=== PATIENT | male | born 1960 | race Caucasian/White ===

== ENCOUNTER 2017-05-14 22:31 | Observation (INO) | payer BC ==
[2017-05-14 23:03] LABS: #Basophils 0.2 thou/uL (0.0-0.2); #Eosinphils 0.2 thou/uL (0.0-0.7); #Lymphocytes 5.8 thou/uL (1.20-3.40); #Monocytes 0.8 thou/uL (0.11-0.59); #Neutrophils 7.1 thou/uL (1.40-6.50); %Basophils 1.3 % (0.0-1.0); %Eosinophils 1.1 % (0.0-10.0); %Lymphocytes 41.5 % (21.0-51.0); %Monocytes 5.5 % (0.0-10.0); %Neutrophils 50.6 % (42.0-75.0); Hemoglobin 15.7 g/dL (14.0-18.0); Mean Corpuscular HGB CONC 33.6 g/dL (32.0-36.0); Mean Corpuscular Hemoglobin 34.1 pg (27.0-31.0); Mean Platelet Volume 7.2 fL (7.4-10.4); Platelet Count 302 thou/uL (130-400); RBC Distribution Width 12.1 % (11.5-14.5)
--- NOTE | 2017-05-14 23:16 | RAD ---
PORTABLE CHEST: 05/14/17 HISTORY: Syncope. Lungs appear clear. Heart and mediastinum unremarkable. A single AICD lead is noted. A nodular density overlying the left lower lung was noted on a prior portable film of 11/06/16 and is u nchanged. This may represent a nipple shadow. IMPRESSION: No acute process. POS: [facility]
[2017-05-14 23:22] LABS: Lipase 39 U/L (8-78)
[2017-05-14 23:23] LABS: CK (CPK) 92 U/L (30-200)
[2017-05-14 23:27] LABS: CKMB 1.2 ng/mL (0-6.6); Troponin I 0.016 ng/mL (< 0.028)
[2017-05-15 00:55] LABS: Anion Gap 16 mmol/L (10-20); BUN (Urea Nitrogen) 13 mg/dL (8.4-25.7); Calc. Creatinine Clearance 0 mL/min (70-130); Calcium 9.3 mg/dL (7.8-10.44); Carbon Dioxide 23 mmol/L (22-29); Chloride 105 mmol/L (98-107); Estimated GFR-MDRD 81; Glucose 113 mg/dL (70-105); Magnesium 2.5 mg/dL (1.6-2.6); Phosphorus 3.9 mg/dL (2.3-4.7); Potassium 3.9 mmol/L (3.5-5.1); Sodium 140 mmol/L (136-145)
[2017-05-15 02:31] LABS: Troponin I 0.021 ng/mL (< 0.028)
[2017-05-15] MEDS ORDERED: Ondansetron ODT 4 MG TAB PO PRN (02:40)
[2017-05-15] MEDS ORDERED: Acetaminophen 325 MG TAB PO PRN (02:40)
[2017-05-15] MEDS ORDERED: Ondansetron HCl/PF 4 MG/2 ML Vial IVP PRN (02:40)
[2017-05-15] MEDS ORDERED: Senokot 8.6 MG TAB PO PRN (02:40)
[2017-05-15] MEDS ORDERED: Nitroglycerin 0.4 MG TAB (25 Tab Bottle) PO PRN (02:40)
[2017-05-15] MEDS ORDERED: Nitroglycerin 0.4 MG TAB (25 Tab Bottle) SL PRN (02:43)
--- NOTE | 2017-05-15 02:51 | HP ---
DATE OF ADMISSION: 05/15/2017 CHIEF COMPLAINT: Syncope. HISTORY OF PRESENT ILLNESS: The patient is a 56-year-old male with coronary artery disease, status p ost UT with stent placement, chronic systolic heart failure, status post AICD, presented to the [facility] ency room with an episode of syncope that happened around 9:30 p.m. The patient was in the bathroom at that time. He lost consciousness approximately for a minute or so. Prior to syncope, the patient felt dizzy and the room was spinning. He denies significant injuries. In no chest pain, shortness of breath, palpitations or residual confusion reported. Over the last two days, the patient has been feeling lightheaded on and off. He has been under lot of stress lately. He denies any focal neurol ogic deficit. The patient also had some chest discomfort after the above syncopal episode. He took 1 sublingual nitroglycerin with some improvement. The chest discomfort was substernal without any ra diation, moderate in intensity. PAST MEDICAL HISTORY: 1. Chronic systolic heart failure, ejection fraction 30% to 35% range. 2. Coronary artery disease, status post UT with stent placement. He was admitted at this facility i november of last year for inferior ST elevation myocardial infarction. 3. Ischemic cardiomyopathy. 4. History of AICD. 5. Hyperlipidemia. 6. Ongoing tobacco abuse. PAST SURGICAL HISTORY: 1. AICD placement. 2. Coronary stent placement. 3. Hernia repair. ALLERGIES: The patient denies any drug allergies. CURRENT HOME MEDICATIONS: Aspirin 81 mg daily, Plavix 75 mg daily, carvedilol 3.125 mg b.i.d., Lipit or 80 mg daily, Entresto 49/51 one tablet b.i.d., digoxin 125 mcg daily. SOCIAL HISTORY: The patient currently lives at home with his family. He denies any alcohol or drug use. Continues to smoke up to 1 pack a day. FAMILY HISTORY: Negative for premature coronary artery disease. REVIEW OF SYSTEMS: The following complete review of systems was negative, unless otherwise mentioned in the HPI or below: Constitutional: Weight loss or gain, ability to conduct usual activities. Skin: Rash, itching. Eyes: Double vision, pain. ENT/Mouth: Nose bleeding, neck stiffness, pain, tenderness. Cardiovascular: Palpitations, dyspnea on exertion, orthopnea. Respiratory: Shortness of breath, wheezing, cough, hemoptysis, fever or night sweats. Gastrointestinal: Poor appetite, abdominal pain, heartburn, nausea, vomiting, constipation, or diarr hea. Genitourinary: Urgency, frequency, dysuria, nocturia. Musculoskeletal: Pain, swelling. Neurologic/Psychiatric: Anxiety, depression. Allergy/Immunologic: Skin rash, bleeding tendency. PHYSICAL EXAMINATION: VITAL SIGNS: In the emergency room, temperature 98.4, respiration of 18, pulse rate of 85, blood pre ssure of 148/87, O2 saturation 98% on room air. GENERAL: A 56-year-old male in no apparent distress. HEENT: Head atraumatic, normocephalic. Sclerae anicteric. Moist mucous membranes. No oral lesion. NECK: Supple, no JVD, no carotid bruit. LUNGS: Clear to auscultation bilaterally. No wheezing or rales. HEART: S1, S2 present. Regular rate and rhythm. No murmur, rubs, or gallops appreciated. ABDOMEN: Soft, nontender, bowel sounds present. EXTREMITIES: No edema or calf tenderness. NEUROLOGIC: Grossly nonfocal, moves all four extremities. PSYCHIATRY: Alert, awake, oriented x3. SKIN: Warm and dry. LYMPH NODES: No palpable lymph nodes in the neck. PERIPHERAL VASCULAR: Radial pulses palpable bilaterally. MUSCULOSKELETAL: No joint swelling or tenderness. LABORATORY FINDINGS: Troponin negative. Electrolytes in normal range. CBC showed WBC 14 with hemog lobin 15.7, platelet 302. Creatinine 0.97. BNP 29.9. Chest x-ray by my review was negative for infiltrate. EKG by my review showed sinus rhythm with nons pecific ST-T wave changes. IMPRESSION: 1. Syncope, suspected cardiac. 2. Coronary artery disease, status post myocardial infarction with stent placement. 3. Ischemic cardiomyopathy/chronic systolic heart failure, ejection fraction 30% to 35% range. 4. Hyperlipidemia. 5. Ongoing tobacco abuse. 6. Chronic kidney disease stage 2. 7. Chronic leukocytosis. 8. Microcytosis. 9. Hypertension. PLAN: The patient will be monitored in the telemetry unit as observation. Cardiology will be consul dima. His AICD will be interrogated. We will check orthostatic vitals. We will continue all of his home medications. Check digoxin level. Tobacco cessation was emphasized. Plan of care was discussed with the patient in detail, he stated understanding.
[2017-05-15 05:39] LABS: Digoxin Less than 0.15 ng/mL (0.8-2.0)
[2017-05-15] MEDS ORDERED: Clopidogrel Bisulfate 75 MG TAB PO SCH (09:00)
[2017-05-15] MEDS ORDERED: Carvedilol 3.125 MG TAB PO SCH (09:00)
[2017-05-15] MEDS ORDERED: Famotidine 20 MG TAB PO SCH (09:00)
[2017-05-15] MEDS ORDERED: Sacubitril 49 MG/Valsartan 51 MG TABLET PO SCH (09:00)
[2017-05-15] MEDS ORDERED: Digoxin 0.125 MG TAB PO SCH (09:00)
[2017-05-15] MEDS ORDERED: Aspirin 81 mg Enteric Coated Tablet PO SCH (09:00)
[2017-05-15] MEDS ORDERED: Docusate 100 MG CAP PO SCH (09:00)
[2017-05-15] MEDS ORDERED: Sacubitril 24.5 MG/Valsartan 25.5 MG TABLET PO SCH ×2 (15:30→21:00)
[2017-05-15 17:18] VITALS: BP 125/66; TEMP 98.2
[2017-05-15] MEDS ORDERED: Atorvastatin Calcium 40 MG TAB PO SCH (21:00)
--- NOTE | 2017-05-15 22:22 | DIS ---
PRIMARY CARE PHYSICIAN: Delilah Hess DO DATE OF ADMISSION: 05/15/2017 DATE OF DISCHARGE: 05/15/2017 DISCHARGE DIAGNOSIS: Syncope. CONDITION OF PATIENT ON THE DAY OF DISCHARGE: Stable. I assessed Mr. Avila on the day of discharg e. He denies any chest pain or shortness of breath. PHYSICAL EXAMINATION: VITAL SIGNS: Stable. HEART: S1 and S2 are heard, regular. LUNGS: Clear to auscultation bilaterally. HOSPITAL COURSE: Mr. Margarita Smith was admitted to [facility] on 05/15/2017 fol lowing a syncopal episode. His AICD was interrogated. There were no significant dysrhythmias. He w as seen by Cardiology Service. Dr. Pierre decreased his Entresto dose to 24/25.5 mg 2 times a day. He is being discharged home in a stable condition. Many thanks for allowing me to participate in your patient's care. Please feel free to contact me if any questions or concerns. DISCHARGE DESTINATION: Home.
--- NOTE | 2017-05-15 23:43 | CON ---
CARDIOLOGY CONSULTATION DATE OF CONSULTATION: 05/15/2017 REASON FOR CONSULTATION: Syncope. PRIMARY DATA COMMUNICATIONS ANALYST: Ryland Pierre MD HISTORY OF PRESENT ILLNESS: Mr. Avila is a pleasant 56-year-old white gentleman who comes to the ospital for syncope. He was at home, went to the bathroom to have a bowel movement, he sat down, had not even started to strain and he just collapsed to the floor, he was out for about a minute. He th en woke up, he was completely lucid, he opened the door, his heard the thud so she was waiting o n the door as it was locked. He woke up and he was brought into the hospital. He felt just fine. H is blood pressure was checked and it was in 130s when he was finally awake. He came in, he has an AI CD in place for a history of ischemic cardiomyopathy, his EF is about 30-35%. He had recently the in [place] which required stent placement in RCA and he has had an anterior NH in the past. He denies any chest pain, tightness, pressure, no shortness of breath. This is the first time he has ever passed out. PAST MEDICAL HISTORY: 1. Chronic systolic heart failure, EF of about 30-35%. 2. Coronary artery disease as above. 3. Ischemic cardiomyopathy. 4. AICD placement. 5. Hyperlipidemia. 6. Tobacco abuse. PAST SURGICAL HISTORY: 1. AICD placement in the past. 2. Coronary artery stenting in the past. 3. Hernia repair. OUTPATIENT MEDICATIONS: Include: 1. Aspirin 81 a day. 2. Plavix 75 mg a day. 3. Carvedilol 3.125 mg b.i.d. 4. Lipitor 80 mg a day. 5. Entresto 49/51 twice a day. 6. Digoxin 125 mcg a day. SOCIAL HISTORY: Lives at home with his family. No alcohol or drug use, continues to smoke about a p ack a day. FAMILY HISTORY: Noncontributory. REVIEW OF SYSTEMS: A 12-point review of systems was done and is all negative unless stated in the hi story of present illness. PHYSICAL EXAMINATION: VITAL SIGNS: Temperature 98.4, pulse 77, respiration rate 15, satting 92% on room air, blood pressur e 115/70, he is not . His blood pressure lying supine is 134/81, standing is 134/81, and sittin g is 125/73. GENERAL: Awake, alert, oriented x3, in no distress. HEENT: Normocephalic, atraumatic. NECK: Supple. No JVD. LUNGS: Clear. CARDIOVASCULAR: S1, S2. No S3 or S4. No murmurs or rubs. ABDOMEN: Soft, positive bowel sounds. EXTREMITIES: No edema. SKIN: Warm and dry. LABORATORY WORK: Reviewed. White count 14, hemoglobin 15, hematocrit 46, platelet count of 302. Ch emistry was unremarkable. Troponin is negative x3. BNP was 29. Lipase was 39. Digoxin level was a ctually undetectable. DIAGNOSTIC DATA: Chest x-ray was unremarkable. EKG was unremarkable. AICD interrogation showed no evidence of arrhythmia during the episode that he did have 2 episodes of SVT, which were asymptomatic , back in 12/2016. ASSESSMENT AND PLAN: 1. Syncope: Most likely related to hypotension. He has always had borderline low blood pressure an d probably the increased dose of Entresto that he has been on for the last few months, is too much fo r him at this time. We will plan on cutting this in half to 24/26 dose twice a day. 2. Ischemic cardiomyopathy: EF of 30-35%, automatic implanted cardioverter defibrillator in place. Continue beta maik and Entresto for now. Thank you for letting us to participate in the care of your patient. We will sign off. He can follo w up with me in 2 weeks.
== END 2017-05-15 18:18 | disposition home or self-care (01) ==
LOC: ERS 22:31 → 2SW 05-15 01:32
PROVIDERS: ADMIT Internal Medicine; ATTEND Internal Medicine
DX: R55 Syncope and collapse (principal); I25.10 Atherosclerotic heart disease of native coronary artery without angina pectoris; I25.2 Old myocardial infarction; I25.5 Ischemic cardiomyopathy; I13.0 Hypertensive heart and chronic kidney disease with heart failure and stage 1 through stage 4 chronic kidney disease, or unspecified chronic kidney disease; I50.22 Chronic systolic (congestive) heart failure; N18.2 Chronic kidney disease, stage 2 (mild); E78.5 Hyperlipidemia, unspecified; D72.829 Elevated white blood cell count, unspecified; R71.8 Other abnormality of red blood cells; F17.200 Nicotine dependence, unspecified, uncomplicated; Z79.82 Long term (current) use of aspirin; Z79.899 Other long term (current) drug therapy; Z95.5 Presence of coronary angioplasty implant and graft; Z95.810 Presence of automatic (implantable) cardiac defibrillator
CPT/HCPCS: 36415; 71045; 80048; 80162; 82550; 82553; 83690; 83735; 83880; 84100; 84484; 85025; 93005; 94760; 99406; G0378

== ENCOUNTER 2017-11-20 14:22 | Inpatient (IN) | payer BC ==
[2017-11-20] MEDS ORDERED: Sodium Chloride 0.9% 1,000 ML IV SCH (16:39)
[2017-11-20] MEDS ORDERED: Ondansetron ODT 4 MG TAB SL PRN (16:39)
[2017-11-20] MEDS ORDERED: Ondansetron HCl/PF 4 MG/2 ML Vial IVP PRN ×2 (16:39→20:44)
[2017-11-20 16:59] VITALS: BMI 19.4
[2017-11-20] MEDS ORDERED: Acetaminophen 325 MG TAB PO PRN (18:02)
[2017-11-20] MEDS ORDERED: hydrALAZINE 20 MG/ML VIAL SLOW IVP PRN (20:44)
[2017-11-20] MEDS ORDERED: Acetaminophen 500 MG TAB PO PRN (20:44)
[2017-11-20] MEDS ORDERED: cloNIDine 0.1 MG TAB PO PRN (20:44)
[2017-11-20] MEDS ORDERED: Ondansetron ODT 4 MG TAB PO PRN (20:44)
[2017-11-20] MEDS ORDERED: Vancomycin HCl 1 GM in Sodium Chloride 0.9% 250 ML 250 ML IVPB SCH (21:00)
--- NOTE | 2017-11-20 21:20 | HP ---
DATE OF ADMISSION: 11/20/2017 PRIMARY CARE PHYSICIAN: Dr. Delilah Hess. CHIEF COMPLAINT: Left jaw pain, abdominal pain. HISTORY OF PRESENT ILLNESS: This is a 56-year-old male who presents to [facility] Emergency Department complaining of increasing left jaw and mouth pain as well as severe abdominal p ain which began in the last 24 hours. The patient states he went to his local dentist in the [facility] area for swelling and tooth pain in the left side of his jaw. The patient was evaluated and pl aced on clindamycin which patient states he took approximately 3 doses of the medication. The patien t complained of increasing abdominal pain and discomfort after taking the medication that became gamaliel re. Patient denied any specific diarrhea, but had some nausea. The patient has noticed increasing s welling to left lower jaw as well as the gumline in the associated area of his teeth. The patient ad mits to feeling sweaty and warm, but did not take his temperature. The patient denies any prior surg ical intervention or dental procedures recently. The patient admits to poor dentition and has severa l teeth that need to be removed. The patient admits to decreased oral intake due to the pain with ch bhandari small amounts of food. In the emergency room, patient underwent general evaluation including C T imaging of the neck showing evidence of questionable abscess in the submandibular region as well as inflammatory process in the left side of the oral cavity and gingival region in the lower mandible. The patient also noted with questionable right-sided nasopharyngeal mass versus cyst. The patient r eceived IV Unasyn and acetaminophen and transferred to the medical floor. PAST MEDICAL HISTORY: 1. Tobacco abuse. 2. Ischemic cardiomyopathy with ejection fraction of 30%-35%. 3. Hyperlipidemia. 4. Coronary artery disease status post myocardial infarction with stent placement. 5. Chronic systolic heart failure with ejection fraction of 30%-35%. PAST SURGICAL HISTORY: 1. Status post AICD placement in 2009. 2. Status post cardiac stent placement. 3. Status post hernia repair. CURRENT MEDICATIONS: 1. Lipitor 80 mg p.o. daily. 2. Coreg 3.125 mg p.o. b.i.d. 3. Plavix 75 mg p.o. daily. 4. Digoxin 125 mcg p.o. daily. 5. Nitroglycerin 0.4 mg sublingually every 5 minutes p.r.n. chest pain. 6. Enteric-coated aspirin 81 mg p.o. daily. 7. Entresto 24.5/25.5 mg 1 tab p.o. b.i.d. ALLERGIES: No known drug allergies. FAMILY HISTORY: No inheritable diseases per patient report. SOCIAL HISTORY: Patient is , accompanied by multiple family members in the hospital. Smokes up to a pack of cigarettes daily. No alcohol or illicit drug use. Resides in [place], [place]. REVIEW OF SYSTEMS: The following complete review of systems was negative, unless otherwise mentioned in the HPI or below: Constitutional: Weight loss or gain, ability to conduct usual activities. Skin: Rash, itching. Eyes: Double vision, pain. ENT/Mouth: Nose bleeding, neck stiffness, pain, tenderness. Cardiovascular: Palpitations, dyspnea on exertion, orthopnea. Respiratory: Shortness of breath, wheezing, cough, hemoptysis, fever or night sweats. Gastrointestinal: Poor appetite, abdominal pain, heartburn, nausea, vomiting, constipation, or diarr hea. Genitourinary: Urgency, frequency, dysuria, nocturia. Musculoskeletal: Pain, swelling. Neurologic/Psychiatric: Anxiety, depression. Allergy/Immunologic: Skin rash, bleeding tendency. Otherwise negative except as stated per HPI. PHYSICAL EXAMINATION: VITAL SIGNS: On admission, blood pressure 117/75, pulse 78, respiratory rate 12, temperature 97.5 de grees Fahrenheit, O2 saturation 95% on room air. GENERAL APPEARANCE: This is a 56-year-old male, alert and oriented x3, pleasant, conversan t, in no acute distress. HEENT: Pupils are equal, round, and reactive to light and accommodation. Extraocular muscles are in tact. No scleral icterus, no conjunctival injection. Nares patent. OP; positive subglossal edema w ith gingival edema of the left posterior mandibular region with associated poor dentition, dental car ies and periodontal disease. Positive tenderness to palpation with lymphadenopathy and enlarged subm andibular salivary gland. Positive tenderness to palpation. Positive adenopathy of the left cervica l region. No thyromegaly. Full active and passive range of motion of cervical spine. CHEST: Diminished airflow in the bases bilaterally. CARDIOVASCULAR: S1, S2, without noted murmur, rub or gallop. Left upper chest wall with AICD device in place. ABDOMEN: Flat, soft, nontender and nondistended. Bowel sounds are positive in all four quadrants. There is no hepatosplenomegaly, no abdominal bruits, no rebound or guarding appreciated. EXTREMITIES: Warm and dry with fair turgor. No clubbing, cyanosis or asymmetric edema appreciated. Pulses palpable distally at the dorsalis pedis, posterior tibial, and popliteal arteries bilaterally . Capillary refill is less than 2 seconds. NEUROLOGIC: Cranial nerves II-XII are grossly intact. No focal or lateralizing signs. PERTINENT LABORATORY DATA AND IMAGING DATA: Complete metabolic profile within normal limits. CBC sh owed white blood cell count 18.4, hemoglobin 16, hematocrit 46, and platelet count 341 with normal di fferential. Urinalysis negative. CT of the soft tissues of the neck dated 11/20/2017 showed multipl e abnormalities including infectious/inflammatory process at left side of oral cavity. Questionable abscess in the submandibular region. 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 EKG dated 11/04 by my interpretation shows sinus mechanism with heart rates in the 70s. Attenuated R waves no dima in the precordial leads. Normal axis. No acute ST-T wave changes appreciated. ASSESSMENT AND PLAN: 1. Periodontal/submandibular abscess. The patient will be admitted to the medical floor. We will c ontinue IV Zosyn 3.375 grams IV q.6 hours. Continue [place] 5/325 mg 1-2 tabs p.o. q.6 hours p.r.n. pa in. Peridex oral rinse 15 mL swish and spit b.i.d. We will consult Oral Maxillofacial Surgery Servi ce in the a.m. for evaluation and potential surgical intervention. 2. Coronary artery disease. Chronic and stable. Continue home regimen to include aspirin and Plavi x. 3. Ischemic cardiomyopathy with ejection fraction of 30%-35%. Stable currently. No evidence of dec ompensation. Continue Entresto 1 tab b.i.d. 4. Hypertension. Resume Coreg 3.125 mg b.i.d. 5. Tobacco abuse. We will offer smoking cessation resources prior to discharge. Nicotine patch 21 mg transdermally q.24 hours. 6. Prophylaxis. Sequential compression devices while in bed. Pepcid 20 mg p.o. b.i.d. 7. Code status is FULL. Surrogate medical decision maker is patient's spouse.
[2017-11-20] MEDS: Nicotine 21 MG PATCH TD SCH (21:31)
[2017-11-20] MEDS: Chlorhexidine Gluconate 15 ML UDCUP SSP SCH (21:31)
[2017-11-20] MEDS: HYDROcodone/Acetaminophen 5/325 mg Tablet PO PRN (21:32)
[2017-11-20] MEDS: Sacubitril 24.5 MG/Valsartan 25.5 MG TABLET PO SCH (21:32)
[2017-11-20] MEDS: Vancomycin HCl 1 GM in Premix Bag 1 BAG IVPB SCH (21:33)
[2017-11-20] MEDS: Famotidine 20 MG TAB PO SCH (21:33)
[2017-11-20] MEDS: Sodium Chloride 0.9% 1,000 ML IV SCH (21:33)
[2017-11-20] MEDS: Carvedilol 3.125 MG TAB PO SCH (21:33)
[2017-11-20] MEDS: Piperacillin/Tazobactam 3.375 GM in Sodium Chloride 0.9% 100 ML IVPB SCH (22:47)
[2017-11-21] MEDS: HYDROcodone/Acetaminophen 5/325 mg Tablet PO PRN ×4 (02:03→20:10)
[2017-11-21] MEDS: Piperacillin/Tazobactam 3.375 GM in Sodium Chloride 0.9% 100 ML IVPB SCH ×4 (04:14→21:57)
[2017-11-21 04:59] LABS: Band 2 % (5-11); Eosinophils 1 % (0-10); Hemoglobin 13.8 g/dL (14.0-18.0); Lymphocytes 23 % (21-51); MDiff Complete? YES; Mean Corpuscular HGB CONC 33.7 g/dL (32.0-36.0); Mean Corpuscular Hemoglobin 33.9 pg (27.0-31.0); Mean Platelet Volume 6.8 fL (7.4-10.4); Monocytes 3 % (0-10); Neutrophil 69 % (42-75); Platelet Count 283 thou/uL (130-400); RBC Distribution Width 11.9 % (11.5-14.5); Reactive Lymphocytes 2 % (0-10); Red Blood Cell (RBC) Count 4.07 mill/uL (4.70-6.10); White Blood Cell (WBC) Count 15.2 thou/uL (4.8-10.8)
[2017-11-21 05:10] LABS: ALT (SGPT) 17 U/L (8-55); AST (SGOT) 16 U/L (5-34); Albumin 3.5 g/dL (3.5-5.0); Alkaline Phosphatase 103 U/L (40-150); Anion Gap 13 mmol/L (10-20); BUN (Urea Nitrogen) 15 mg/dL (8.4-25.7); Bilirubin, Total 0.2 mg/dL (0.2-1.2); Calc. Creatinine Clearance 78 mL/min (70-130); Calcium 8.5 mg/dL (7.8-10.44); Carbon Dioxide 21 mmol/L (22-29); Chloride 108 mmol/L (98-107); Estimated GFR-MDRD Greater than 90; Globulin 2.6 g/dL (2.4-3.5); Glucose 98 mg/dL (70-105); Potassium 3.8 mmol/L (3.5-5.1); Protein, Total 6.1 g/dL (6.0-8.3); Sodium 138 mmol/L (136-145)
[2017-11-21] MEDS: Sodium Chloride 0.9% 1,000 ML IV SCH ×2 (05:50→17:07)
[2017-11-21] MEDS: Atorvastatin Calcium 40 MG TAB PO SCH (07:47)
[2017-11-21] MEDS: Sacubitril 24.5 MG/Valsartan 25.5 MG TABLET PO SCH ×2 (07:47→20:09)
[2017-11-21] MEDS: Aspirin 81 mg Enteric Coated Tablet PO SCH (07:48)
[2017-11-21] MEDS: Clopidogrel Bisulfate 75 MG TAB PO SCH (07:48)
[2017-11-21] MEDS: Chlorhexidine Gluconate 15 ML UDCUP SSP SCH ×2 (07:48→20:09)
[2017-11-21] MEDS: Carvedilol 3.125 MG TAB PO SCH ×2 (07:48→20:09)
[2017-11-21] MEDS: Digoxin 0.125 MG TAB PO SCH (07:48)
[2017-11-21] MEDS: Famotidine 20 MG TAB PO SCH ×2 (07:48→20:09)
[2017-11-21] MEDS: Vancomycin HCl 1 GM in Premix Bag 1 BAG IVPB SCH ×2 (07:51→20:10)
[2017-11-21] MEDS ORDERED: Eucerin (Mineral Oil/Petrolatum,White) 30 gm Jar TOP PRN (09:44)
[2017-11-21] MEDS ORDERED: Senokot 8.6 MG TAB PO PRN (09:44)
[2017-11-21] MEDS ORDERED: Zolpidem Tartrate 5 MG TAB PO PRN (09:44)
[2017-11-21] MEDS ORDERED: Loperamide HCl 2 MG CAP PO PRN (09:44)
[2017-11-21] MEDS ORDERED: Diabetic Tussin 200 MG/10 ML UDCUP PO PRN (09:44)
[2017-11-21] MEDS ORDERED: Sodium Chloride 0.65% Nasal 44 ML BOT EA NARE PRN (09:44)
[2017-11-21] MEDS ORDERED: Chloraseptic Spray 180 ml Bottle PO PRN (09:44)
[2017-11-21] MEDS ORDERED: Loratadine 10 MG TAB PO PRN (09:44)
[2017-11-21] MEDS ORDERED: Artificial Tears 18 DROP/0.9 ML EA EYE PRN (09:44)
[2017-11-21] MEDS ORDERED: Mag-Al 1200 mg/1200 mg/30 ML UDCUP PO PRN (09:44)
[2017-11-21] MEDS ORDERED: Milk Of Magnesia 30 ML UDCUP PO PRN (09:44)
[2017-11-21] MEDS ORDERED: Nitroglycerin 0.4 MG TAB (25 Tab Bottle) ONE (09:59)
[2017-11-21] MEDS ORDERED: Nitroglycerin 2% Ointment 1 INCH/1 GM Packet ONE (10:01)
[2017-11-21] MEDS ORDERED: Fentanyl 250 MCG/5 ML VIAL ONE (10:20)
[2017-11-21] MEDS ORDERED: Ondansetron HCl/PF 4 MG/2 ML Vial IVP PRN (10:24)
--- NOTE | 2017-11-21 10:39 | PDOC.PN ---
- Subjective Encounter Start Date: 11/21/17 Encounter Start Time: 08:40 -: old records requested/rev Patient seen and examined. No new complaints. No overnight events - Objective Resuscitation Status: Resuscitation Status FULL:Full Resuscitation MAR Reviewed: Yes Vital Signs & Weight: Vital Signs (12 hours) Temp Pulse Resp BP Pulse Ox 11/21/17 08:20 97.7 F 74 18 137/79 92 L 11/21/17 08:00 97.7 F 74 18 97 11/21/17 07:48 79 11/21/17 04:00 97.9 F 79 18 137/84 95 11/21/17 00:00 98.1 F 87 18 100/64 93 L Weight Weight 117 lb I&O: 11/20/17 11/21/17 11/22/17 06:59 06:59 06:59 Intake Total 1931 Balance 1931 Result Diagrams: 11/21/17 04:19 11/21/17 04:19 Radiology Reviewed by me: Yes Phys Exam - Physical Examination Constitutional: NAD HEENT: PERRLA, moist MMs, sclera anicteric Neck: no JVD, supple submandibular swelling Respiratory: no wheezing, no rales, no rhonchi Cardiovascular: RRR, no significant murmur, no rub Gastrointestinal: soft, non-tender, no distention, positive bowel sounds Musculoskeletal: no edema, pulses present Neurological: non-focal, normal sensation, moves all 4 limbs Psychiatric: normal affect, A&O x 3 Skin: no rash, normal turgor Dx/Plan (1) Submandibular abscess Code(s): K12.2 - CELLULITIS AND ABSCESS OF MOUTH Status: Acute (2) CAD (coronary artery disease) Code(s): I25.10 - ATHSCL HEART DISEASE OF [place] CORONARY ARTERY W/O ANG PCTRS Status: Chronic (3) Chronic systolic heart failure, ACC/AHA stage C Code(s): I50.22 - CHRONIC SYSTOLIC (CONGESTIVE) HEART FAILURE Status: Chronic (4) Dyslipidemia Code(s): E78.5 - HYPERLIPIDEMIA, UNSPECIFIED Status: Chronic (5) Hypertension Code(s): I10 - ESSENTIAL (PRIMARY) HYPERTENSION Status: Chronic (6) Macrocytic anemia Code(s): D53.9 - NUTRITIONAL ANEMIA, UNSPECIFIED Status: Chronic (7) Tobacco abuse Code(s): Z72.0 - TOBACCO USE Status: Chronic - Plan cont current plan of care, continue antibiotics * today I & D [place] oral surgeon * continue IV antibiotics as below * pain controlled * repeat labs tomorrow. Review of Systems - Review of Systems ENT: Mouth Pain. negative: Ear Pain, Ear Discharge, Nose Pain, Nose Discharge, Nose Congestion, Mouth Swelling, Throat Pain, Throat Swelling, Other Respiratory: negative: Cough, Dry, Shortness of Breath, Hemoptysis, SOB with Excertion, Pleuritic Pain, Sputum, Wheezing Cardiovascular: negative: chest pain, palpitations, orthopnea, paroxysmal nocturnal dyspnea, edema, light headedness, other Gastrointestinal: negative: Nausea, Vomiting, Abdominal Pain, Diarrhea, Constipation, Melena, Hematochezia, Other Genitourinary: negative: Dysuria, Frequency, Incontinence, Hematuria, Retention , Other Musculoskeletal: negative: Neck Pain, Shoulder Pain, Arm Pain, Back Pain, Hand Pain, Leg Pain, Foot Pain, Other Skin: negative: Rash, Lesions, Felix, Bruising, Other - Medications/Allergies Allergies/Adverse Reactions: Allergies Allergy/AdvReac Type Severity Reaction Status Date / Time No Known Drug Allergies Allergy Verified 11/20/17 16:48 Medications: Current Medications Acetaminophen (Tylenol) 1,000 mg PO Q6H PRN PRN Reason: Headache/Fever or Mild Pain Hydrocodone Bitart/Acetaminophen ([place] 5/325) 2 tab PO Q4H PRN PRN Reason: Severe Pain (7-10) Last Admin: 11/21/17 05:50 Dose: 2 tab Hydrocodone Bitart/Acetaminophen ([place] 5/325) 1 tab PO Q4H PRN PRN Reason: Moderate Pain (4-6) Al Hydroxide/Mg Hydroxide (Maalox) 15 ml PO Q4H PRN PRN Reason: Heartburn or Indigestion Artificial Tears (Tears Naturale) 0 drop EA EYE PRN PRN PRN Reason: Dry Eyes Aspirin (Ecotrin) 81 mg PO DAILY [facility] Last Admin: 11/21/17 07:48 Dose: 81 mg Atorvastatin Calcium (Lipitor) 80 mg PO DAILY [facility] Last Admin: 11/21/17 07:47 Dose: 80 mg Carvedilol (Coreg) 3.125 mg PO BID [facility] Last Admin: 11/21/17 07:48 Dose: 3.125 mg Chlorhexidine Gluconate (Chlorhexidine Gluconate) 15 ml SSP BID [facility] Last Admin: 11/21/17 07:48 Dose: 15 ml Clonidine (Catapres) 0.1 mg PO Q4H PRN PRN Reason: Systolic BP > 180 Clopidogrel Bisulfate (Plavix) 75 mg PO DAILY [facility] Last Admin: 11/21/17 07:48 Dose: 75 mg Digoxin (Lanoxin) 0.125 mg PO DAILY [facility] Last Admin: 11/21/17 07:48 Dose: 0.125 mg Famotidine (Pepcid) 20 mg PO BID [facility] Last Admin: 11/21/17 07:48 Dose: 20 mg Fentanyl (Pacu-Sublimaze) 50 mcg SLOW IVP Q10MIN PRN PRN Reason: Moderate to Severe Pain (6-10) Stop: 11/21/17 13:24 Guaifenesin (Robitussin Sf) 200 mg PO Q4H PRN PRN Reason: Cough Hydralazine HCl (Apresoline) 10 mg SLOW IVP Q4H PRN PRN Reason: Systolic BP > 180 Sodium Chloride (Normal Saline 0.9%) 1,000 mls @ 100 mls/hr IV .Q10H [facility] Last Admin: 11/21/17 05:50 Dose: 1,000 mls Piperacillin Sod/Tazobactam (Sod 3.375 gm/ Sodium Chloride) 100 mls @ 200 mls/ hr IVPB 0400,1000,1600,2200 [facility] Last Admin: 11/21/17 04:14 Dose: 100 mls Vancomycin HCl 1 gm/ Device 200 mls @ 200 mls/hr IVPB Q12HR [facility] Last Admin: 11/21/17 07:51 Dose: 200 mls Loperamide HCl (Imodium) 2 mg PO PRN PRN PRN Reason: Diarrhea/Loose Stools Loratadine (Claritin) 10 mg PO DAILYPRN PRN PRN Reason: Sinus Symptoms Magnesium Hydroxide (Milk Of Magnesium) 30 ml PO DAILYPRN PRN PRN Reason: Constipation Mineral Oil/White Petrolatum (Eucerin Cream) 0 gm TOP BIDPRN PRN PRN Reason: Dry Skin Nicotine (Nicoderm Patch) 21 mg TD Q24HR [facility] Last Admin: 11/20/17 21:31 Dose: 21 mg Ondansetron HCl (Zofran Odt) 4 mg PO Q6H PRN PRN Reason: Nausea/Vomiting Ondansetron HCl (Zofran) 4 mg IVP Q6H PRN PRN Reason: Nausea/Vomiting Ondansetron HCl (Pacu-Zofran) 4 mg IVP ONE PRN PRN Reason: Nausea/Vomiting Stop: 11/21/17 13:24 Phenol (Chloraseptic [place] 180 Ml Bot) 0 ml PO PRN PRN PRN Reason: Sore Throat Sacubitril/Valsartan (Entresto 24.5 Mg-25.5 Mg Tablet) 1 tab PO BID [facility] Last Admin: 11/21/17 07:47 Dose: 1 tab Senna (Senokot) 2 tab PO HSPRN PRN PRN Reason: Constipation Sodium Chloride ([place] Nasal [place] 0.65%) 0 ml EA NARE QIDPRN PRN PRN Reason: Nasal Congestion Zolpidem Tartrate (Ambien) 5 mg PO HSPRN PRN PRN Reason: Insomnia
[2017-11-21] MEDS ORDERED: PROPOFOL 200 MG/20 ML VIAL ONE (11:10)
[2017-11-21] MEDS ORDERED: ePHEDrine/0.9% NaCl/PF SYRINGE 50 mg/10 ml ONE (11:10)
[2017-11-21] MEDS ORDERED: PHENYLEPHRINE-NS 100 MCG/ML 10 ML SYRINGE ONE (11:10)
[2017-11-21] MEDS ORDERED: Glycopyrrolate 0.2 MG/ML 5 ML SYRINGE ONE (11:10)
[2017-11-21] MEDS ORDERED: Lidocaine 1% PF 5 ML VIAL ONE (11:10)
[2017-11-21] MEDS ORDERED: Ondansetron HCl/PF 4 MG/2 ML Vial ONE (11:10)
[2017-11-21] MEDS ORDERED: Chlorhexidine Gluconate 15 ML UDCUP SSP ONE (11:12)
[2017-11-21] MEDS ORDERED: Hydrocortisone 1% Cream 30 GM TUBE ONE (11:12)
[2017-11-21] MEDS ORDERED: Lidocaine 1% w/Epinephrine 1:100K 30 ML VIAL ONE (11:12)
--- NOTE | 2017-11-21 11:52 | CON ---
DATE OF CONSULTATION: 11/21/2017 HISTORY OF PRESENT ILLNESS: This is a 56-year-old male with a 1-week history of left-sided tooth and jaw pain. The patient saw his dentist with a prescription for clindamycin administered and a schedu led appointment for extraction this coming Thursday, worsening in his symptoms with acute swelling a nd significant pain led the patient to the emergency room, was transferred to [facility] where a CT s can reveals odontogenic abscess in the left sublingual and submandibular spaces with a white blood ce ll count of 18. The patient was admitted for medical and surgical intervention. He reports pain on the left-sided jaw and neck, some discomfort on swallowing, but able to handle secretions, food and l iquids without difficulty as well as no dyspnea. PAST MEDICAL HISTORY: 1. Ischemic cardiomyopathy. 2. Hyperlipidemia. 3. Coronary artery disease. 4. Myocardial infarction approximately one year ago. 5. Systolic heart failure. HOME MEDICATIONS: 1. Lipitor. 2. Coreg. 3. Plavix. 4. Digoxin. 5. Nitroglycerin. 6. Aspirin. 7. Entresto. ALLERGIES: No known drug allergies. PAST SURGICAL HISTORY: 1. Cardiac stent placement. 2. Hernia repair. 3. AICD placement in 2009. SOCIAL HISTORY: One pack per day cigarette smoker, denies alcohol or illicit drug use. REVIEW OF SYSTEMS: As per HPI, otherwise within normal limits. PHYSICAL EXAMINATION: VITAL SIGNS: Stable, afebrile. GENERAL: Awake, alert, oriented x3, patient sitting in bed in no acute distress. HEENT: Pupils equal, round, reactive to light. Extraocular movements intact. Visual acuity grossly intact. Ears within normal limits. Nose within normal limits. Throat trach midline. Intraoral ex am reveals a normal mandibular range of motion with edema and tenderness to palpation along the floor of the mouth. The left side worse than the right. There is spontaneous purulent drainage coming fr om around tooth #30 intraorally. There is no buccal or vestibular edema. Tongue has full range of m otion. Oropharynx unremarkable. There was a slight left submandibular edema and tenderness to palpa tion, but no erythema. The inferior border of the mandible is palpable along its entire length. CT of the neck reveals a periapical radiolucency associated with tooth #30 with associated fluid collect ion along the medial aspect of the mandible and the patient's left side extending into the sublingual and submandibular spaces. Airway is patent. ASSESSMENT: This is a 56-year-old male with acute odontogenic infection requiring surgical intervent ion. PLAN: 1. The patient is n.p.o. He will be taken to the operating room later today for extraction of indica dima teeth and incision and drainage of abscess. The risks, benefits, and alternatives of the procedu re were discussed in detail with the patient. Questions were sought and answered. Patient agrees wi th the plan for surgical intervention. 2. Continue IV Zosyn, we will add Peridex mouth rinse 15 mL swish and spit b.i.d. after surgery. 3. Postop instructions were discussed with the patient including a gauze pack directly over the extr action site with bite pressure change every 20-30 minutes as needed for hemostasis. The patient is t o chew soft foods on the other side of his mouth. He can have a regular diet, but recommended sticki ng with soft foods, avoid tongue and tooth brush to the extraction site, but the patient is advised t o keep his mouth clean as possible, brushing his teeth 3 times a day is recommended.
--- NOTE | 2017-11-21 14:54 | OP ---
DATE OF PROCEDURE: 11/21/2017. PREOPERATIVE DIAGNOSES: 1. Dental decay abscess, tooth #18. 2. Left sublingual abscess. POSTOPERATIVE DIAGNOSES: 1. Dental decay abscess, tooth #18. 2. Left sublingual abscess. PROCEDURES PERFORMED: 1. Simple extraction of tooth #18. 2. Intraoral incision and drainage of left sublingual abscess. ANESTHESIA: General nasoendotracheal anesthesia. ADULT NEUROPSYCHOLOGIST: Neto Dumont MD. INDICATIONS FOR PROCEDURE: This is a 56-year-old male with approximately 1-week history of left-side d jaw pain with acute increase in swelling, leading him to visit the ER where CT confirmed abscess of tooth #18 with fluid collection on the medial aspect of the mandible, requiring surgical interventio n. PROCEDURE PERFORMED: The patient was met in the preoperative holding area. Risks, benefits, and alt ernatives were discussed. Informed consent was obtained. He was transferred to the operating room b y Anesthesia and to the OR table where a safety belt was secured, standard ASA monitor attached, and the patient was noted to have stable vital signs. IV induction by Anesthesia with endotracheal intub ation x1 without complication. Endotracheal tube was secured in a standard fashion and a timeout was performed. The patient was prepped and draped in a sterile fashion. The oropharynx was thoroughly suctioned. A moistened Ray-Milady throat pack was used. Peridex mouth rinse with tooth brushing was pe rformed. Approximately 7 mL of 1% lidocaine with 1:100,000 epinephrine was administered as a left in ferior alveolar nerve block, lingual nerve block, and buccal nerve block. Elevator and forceps were used for removal of tooth #18. A 15-blade was used for a crestal incision with a full thickness muco periosteal flap on the lingual aspect of the left mandible with blunt subperiosteal dissection. Mode rate amounts of purulence were expressed. This was cultured. A curette was used to remove granulati on tissue from the apex of the #18 socket. Copious irrigation of the lingual flap was performed with normal saline. A 0.25-inch Kenton drain was placed and secured with a silk suture. Gelfoam was pl aced within the socket to aid in hemostasis with a 4-0 chromic [id number] suture. The oropharyn x was suctioned, and the Ray-Milady throat pack was removed. Gauze pack was placed for hemostasis, and the patient was extubated in the room and returned to the PACU in stable condition. FLUIDS: See anesthesia records. ESTIMATED BLOOD LOSS: 10 mL. DRAINS: A 0.25-inch Fontanelle drain to the medial aspect of the left mandible. IMPLANTS: None. SPECIMENS: Culture of left mandible. COMPLICATIONS: None. COUNTS: Needle and sponge count verified as correct.
[2017-11-21] MEDS: Nicotine 21 MG PATCH TD SCH (20:09)
[2017-11-22] MEDS: HYDROcodone/Acetaminophen 5/325 mg Tablet PO PRN ×2 (01:22→20:03)
[2017-11-22] MEDS: Sodium Chloride 0.9% 1,000 ML IV SCH (01:22)
[2017-11-22] MEDS: Piperacillin/Tazobactam 3.375 GM in Sodium Chloride 0.9% 100 ML IVPB SCH ×4 (04:04→22:52)
[2017-11-22 04:51] LABS: #Basophils 0.1 thou/uL (0.0-0.2); #Eosinphils 0.1 thou/uL (0.0-0.7); #Lymphocytes 3.9 thou/uL (1.20-3.40); #Monocytes 0.7 thou/uL (0.11-0.59); %Basophils 0.7 % (0.0-1.0); %Eosinophils 1.3 % (0.0-10.0); %Lymphocytes 40.3 % (21.0-51.0); %Monocytes 6.9 % (0.0-10.0); %Neutrophils 50.8 % (42.0-75.0); Hemoglobin 12.3 g/dL (14.0-18.0); Mean Corpuscular HGB CONC 33.4 g/dL (32.0-36.0); Mean Corpuscular Hemoglobin 33.4 pg (27.0-31.0); Mean Platelet Volume 6.6 fL (7.4-10.4); Platelet Count 262 thou/uL (130-400); RBC Distribution Width 11.9 % (11.5-14.5); Red Blood Cell (RBC) Count 3.67 mill/uL (4.70-6.10); White Blood Cell (WBC) Count 9.7 thou/uL (4.8-10.8)
[2017-11-22 05:16] LABS: ALT (SGPT) 17 U/L (8-55); AST (SGOT) 19 U/L (5-34); Albumin 3.2 g/dL (3.5-5.0); Alkaline Phosphatase 83 U/L (40-150); Anion Gap 12 mmol/L (10-20); BUN (Urea Nitrogen) 8 mg/dL (8.4-25.7); Bilirubin, Total 0.2 mg/dL (0.2-1.2); CRP (Inflammatory) 8.09 mg/dL (= or < 0.5); Calc. Creatinine Clearance 83 mL/min (70-130); Calcium 8.3 mg/dL (7.8-10.44); Carbon Dioxide 21 mmol/L (22-29); Chloride 111 mmol/L (98-107); Estimated GFR-MDRD Greater than 90; Globulin 2.3 g/dL (2.4-3.5); Glucose 94 mg/dL (70-105); Potassium 3.8 mmol/L (3.5-5.1); Protein, Total 5.5 g/dL (6.0-8.3); Sodium 140 mmol/L (136-145)
[2017-11-22] MEDS: Vancomycin HCl 1 GM in Premix Bag 1 BAG IVPB SCH (07:50)
[2017-11-22] MEDS: Clopidogrel Bisulfate 75 MG TAB PO SCH (07:52)
[2017-11-22] MEDS: Famotidine 20 MG TAB PO SCH ×2 (07:52→20:03)
[2017-11-22] MEDS: Sacubitril 24.5 MG/Valsartan 25.5 MG TABLET PO SCH ×2 (07:52→20:03)
[2017-11-22] MEDS: Digoxin 0.125 MG TAB PO SCH (07:52)
[2017-11-22] MEDS: Carvedilol 3.125 MG TAB PO SCH ×2 (07:52→20:03)
[2017-11-22] MEDS: Atorvastatin Calcium 40 MG TAB PO SCH (07:52)
[2017-11-22] MEDS: Chlorhexidine Gluconate 15 ML UDCUP SSP SCH ×2 (07:53→20:04)
[2017-11-22] MEDS: Aspirin 81 mg Enteric Coated Tablet PO SCH (07:53)
--- NOTE | 2017-11-22 11:53 | PDOC.PN ---
- Subjective Encounter Start Date: 11/22/17 Encounter Start Time: 09:00 Patient seen and examined. No new complaints. No overnight events - Objective Resuscitation Status: Resuscitation Status FULL:Full Resuscitation MAR Reviewed: Yes Vital Signs & Weight: Vital Signs (12 hours) Temp Pulse Resp BP Pulse Ox 11/22/17 08:00 98.0 F 67 20 165/79 H 96 11/22/17 07:52 81 11/22/17 04:23 97.9 F 81 16 120/73 93 L 11/22/17 00:42 97.9 F 68 16 108/68 94 L Weight Weight 117 lb I&O: 11/21/17 11/22/17 11/23/17 06:59 06:59 06:59 Intake Total 1931 2252 360 Balance 1931 2252 360 Result Diagrams: 11/22/17 04:21 11/22/17 04:21 Phys Exam - Physical Examination Constitutional: NAD HEENT: PERRLA, moist MMs, sclera anicteric Neck: no JVD, supple Respiratory: no wheezing, no rales, no rhonchi Cardiovascular: RRR, no significant murmur, no rub Gastrointestinal: soft, non-tender, no distention, positive bowel sounds Musculoskeletal: no edema, pulses present Neurological: non-focal, normal sensation, moves all 4 limbs Lymphatic: no nodes Psychiatric: normal affect, A&O x 3 Skin: no rash, normal turgor Dx/Plan (1) Submandibular abscess Code(s): K12.2 - CELLULITIS AND ABSCESS OF MOUTH Status: Acute Comment: s/p I & D (2) CAD (coronary artery disease) Code(s): I25.10 - ATHSCL HEART DISEASE OF [place] CORONARY ARTERY W/O ANG PCTRS Status: Chronic (3) Chronic systolic heart failure, ACC/AHA stage C Code(s): I50.22 - CHRONIC SYSTOLIC (CONGESTIVE) HEART FAILURE Status: Chronic (4) Dyslipidemia Code(s): E78.5 - HYPERLIPIDEMIA, UNSPECIFIED Status: Chronic (5) Hypertension Code(s): I10 - ESSENTIAL (PRIMARY) HYPERTENSION Status: Chronic (6) Macrocytic anemia Code(s): D53.9 - NUTRITIONAL ANEMIA, UNSPECIFIED Status: Chronic (7) Tobacco abuse Code(s): Z72.0 - TOBACCO USE Status: Chronic - Plan cont current plan of care, continue antibiotics * continue one more day IV antibiotics as ordered, vancomycin and zosyn * medication reviewed as below * symptomatic treatment. * DC IVF Review of Systems - Review of Systems Eyes: negative: Pain, Vision Change, Conjunctivae Inflammation, Eyelid Inflammation, Redness, Other ENT: negative: Ear Pain, Ear Discharge, Nose Pain, Nose Discharge, Nose Congestion, Mouth Pain, Mouth Swelling, Throat Pain, Throat Swelling, Other Respiratory: negative: Cough, Dry, Shortness of Breath, Hemoptysis, SOB with Excertion, Pleuritic Pain, Sputum, Wheezing Cardiovascular: negative: chest pain, palpitations, orthopnea, paroxysmal nocturnal dyspnea, edema, light headedness, other Gastrointestinal: negative: Nausea, Vomiting, Abdominal Pain, Diarrhea, Constipation, Melena, Hematochezia, Other Genitourinary: negative: Dysuria, Frequency, Incontinence, Hematuria, Retention , Other Musculoskeletal: negative: Neck Pain, Shoulder Pain, Arm Pain, Back Pain, Hand Pain, Leg Pain, Foot Pain, Other Skin: negative: Rash, Lesions, Felix, Bruising, Other - Medications/Allergies Allergies/Adverse Reactions: Allergies Allergy/AdvReac Type Severity Reaction Status Date / Time No Known Drug Allergies Allergy Verified 11/20/17 16:48 Medications: Current Medications Acetaminophen (Tylenol) 1,000 mg PO Q6H PRN PRN Reason: Headache/Fever or Mild Pain Hydrocodone Bitart/Acetaminophen ([place] 5/325) 2 tab PO Q4H PRN PRN Reason: Severe Pain (7-10) Last Admin: 11/22/17 01:22 Dose: 2 tab Hydrocodone Bitart/Acetaminophen ([place] 5/325) 1 tab PO Q4H PRN PRN Reason: Moderate Pain (4-6) Last Admin: 11/21/17 20:10 Dose: 1 tab Al Hydroxide/Mg Hydroxide (Maalox) 15 ml PO Q4H PRN PRN Reason: Heartburn or Indigestion Artificial Tears (Tears Naturale) 0 drop EA EYE PRN PRN PRN Reason: Dry Eyes Aspirin (Ecotrin) 81 mg PO DAILY [facility] Last Admin: 11/22/17 07:53 Dose: 81 mg Atorvastatin Calcium (Lipitor) 80 mg PO DAILY [facility] Last Admin: 11/22/17 07:52 Dose: 80 mg Carvedilol (Coreg) 3.125 mg PO BID [facility] Last Admin: 11/22/17 07:52 Dose: 3.125 mg Chlorhexidine Gluconate (Chlorhexidine Gluconate) 15 ml SSP BID [facility] Last Admin: 11/22/17 07:53 Dose: 15 ml Clonidine (Catapres) 0.1 mg PO Q4H PRN PRN Reason: Systolic BP > 180 Clopidogrel Bisulfate (Plavix) 75 mg PO DAILY [facility] Last Admin: 11/22/17 07:52 Dose: 75 mg Digoxin (Lanoxin) 0.125 mg PO DAILY [facility] Last Admin: 11/22/17 07:52 Dose: 0.125 mg Famotidine (Pepcid) 20 mg PO BID [facility] Last Admin: 11/22/17 07:52 Dose: 20 mg Guaifenesin (Robitussin Sf) 200 mg PO Q4H PRN PRN Reason: Cough Hydralazine HCl (Apresoline) 10 mg SLOW IVP Q4H PRN PRN Reason: Systolic BP > 180 Sodium Chloride (Normal Saline 0.9%) 1,000 mls @ 100 mls/hr IV .Q10H [facility] Last Admin: 11/22/17 01:22 Dose: 1,000 mls Piperacillin Sod/Tazobactam (Sod 3.375 gm/ Sodium Chloride) 100 mls @ 200 mls/ hr IVPB 0400,1000,1600,2200 [facility] Last Admin: 11/22/17 10:35 Dose: 100 mls Vancomycin HCl 1 gm/ Device 200 mls @ 200 mls/hr IVPB Q12HR [facility] Last Admin: 11/22/17 07:50 Dose: 200 mls Loperamide HCl (Imodium) 2 mg PO PRN PRN PRN Reason: Diarrhea/Loose Stools Loratadine (Claritin) 10 mg PO DAILYPRN PRN PRN Reason: Sinus Symptoms Magnesium Hydroxide (Milk Of Magnesium) 30 ml PO DAILYPRN PRN PRN Reason: Constipation Mineral Oil/White Petrolatum (Eucerin Cream) 0 gm TOP BIDPRN PRN PRN Reason: Dry Skin Nicotine (Nicoderm Patch) 21 mg TD Q24HR [facility] Last Admin: 11/21/17 20:09 Dose: 21 mg Ondansetron HCl (Zofran Odt) 4 mg PO Q6H PRN PRN Reason: Nausea/Vomiting Ondansetron HCl (Zofran) 4 mg IVP Q6H PRN PRN Reason: Nausea/Vomiting Phenol (Chloraseptic [place] 180 Ml Bot) 0 ml PO PRN PRN PRN Reason: Sore Throat Sacubitril/Valsartan (Entresto 24.5 Mg-25.5 Mg Tablet) 1 tab PO BID [facility] Last Admin: 11/22/17 07:52 Dose: 1 tab Senna (Senokot) 2 tab PO HSPRN PRN PRN Reason: Constipation Sodium Chloride ([place] Nasal [place] 0.65%) 0 ml EA NARE QIDPRN PRN PRN Reason: Nasal Congestion Sodium Chloride (Flush - Normal Saline) 10 ml IVF Q12HR [facility] Last Admin: 11/22/17 07:54 Dose: Not Given Sodium Chloride (Flush - Normal Saline) 10 ml IVF PRN PRN PRN Reason: Saline Flush Zolpidem Tartrate (Ambien) 5 mg PO HSPRN PRN PRN Reason: Insomnia
[2017-11-22] MEDS: Nicotine 21 MG PATCH TD SCH (20:04)
[2017-11-22 20:14] LABS: Vancomycin, Trough 11.3 ug/mL
[2017-11-22] MEDS: Vancomycin HCl 1.25 GM in Sodium Chloride 0.9% 250 ML 250 ML IVPB SCH (20:58)
[2017-11-23] MEDS: Piperacillin/Tazobactam 3.375 GM in Sodium Chloride 0.9% 100 ML IVPB SCH ×2 (04:15→11:24)
[2017-11-23] MEDS: HYDROcodone/Acetaminophen 5/325 mg Tablet PO PRN (04:17)
[2017-11-23] MEDS: Atorvastatin Calcium 40 MG TAB PO SCH (07:48)
[2017-11-23] MEDS: Digoxin 0.125 MG TAB PO SCH (07:49)
[2017-11-23] MEDS: Aspirin 81 mg Enteric Coated Tablet PO SCH (07:49)
[2017-11-23] MEDS: Sacubitril 24.5 MG/Valsartan 25.5 MG TABLET PO SCH (07:49)
[2017-11-23] MEDS: Famotidine 20 MG TAB PO SCH (07:49)
[2017-11-23] MEDS: Carvedilol 3.125 MG TAB PO SCH (07:49)
[2017-11-23] MEDS: Clopidogrel Bisulfate 75 MG TAB PO SCH (07:49)
[2017-11-23 08:22] VITALS: BP 132/85; TEMP 98
[2017-11-23] MEDS: Vancomycin HCl 1.25 GM in Sodium Chloride 0.9% 250 ML 250 ML IVPB SCH (09:18)
[2017-11-23] MEDS: Chlorhexidine Gluconate 15 ML UDCUP SSP SCH (09:18)
--- NOTE | 2017-11-23 11:39 | PDOC.PN ---
- Subjective Encounter Start Date: 11/23/17 Encounter Start Time: 11:37 Patient seen and examined. No new complaints. No overnight events - Objective Resuscitation Status: Resuscitation Status FULL:Full Resuscitation MAR Reviewed: Yes Vital Signs & Weight: Vital Signs (12 hours) Temp Pulse Resp BP Pulse Ox 11/23/17 08:00 98.0 F 56 L 16 132/85 97 11/23/17 07:49 72 Weight Weight 117 lb I&O: 11/22/17 11/23/17 11/24/17 06:59 06:59 06:59 Intake Total 2252 2059 240 Balance 2252 2059 240 Result Diagrams: 11/22/17 04:21 11/22/17 04:21 Phys Exam - Physical Examination Constitutional: NAD HEENT: PERRLA, moist MMs, sclera anicteric Neck: no JVD, supple Respiratory: no wheezing, no rales, no rhonchi Cardiovascular: RRR, no significant murmur, no rub Gastrointestinal: soft, non-tender, no distention, positive bowel sounds Musculoskeletal: no edema, pulses present Neurological: non-focal, normal sensation, moves all 4 limbs Psychiatric: normal affect, A&O x 3 Skin: no rash, normal turgor Dx/Plan (1) Submandibular abscess Code(s): K12.2 - CELLULITIS AND ABSCESS OF MOUTH Status: Acute Comment: s/p I & D (2) CAD (coronary artery disease) Code(s): I25.10 - ATHSCL HEART DISEASE OF [place] CORONARY ARTERY W/O ANG PCTRS Status: Chronic (3) Chronic systolic heart failure, ACC/AHA stage C Code(s): I50.22 - CHRONIC SYSTOLIC (CONGESTIVE) HEART FAILURE Status: Chronic (4) Dyslipidemia Code(s): E78.5 - HYPERLIPIDEMIA, UNSPECIFIED Status: Chronic (5) Hypertension Code(s): I10 - ESSENTIAL (PRIMARY) HYPERTENSION Status: Chronic (6) Macrocytic anemia Code(s): D53.9 - NUTRITIONAL ANEMIA, UNSPECIFIED Status: Chronic (7) Tobacco abuse Code(s): Z72.0 - TOBACCO USE Status: Chronic (8) Nasopharyngeal mass Code(s): J39.2 - OTHER DISEASES OF PHARYNX Status: Acute (9) Laryngeal mass Code(s): J38.7 - OTHER DISEASES OF LARYNX Status: Acute - Plan cont current plan of care, continue antibiotics * on discharge will change to augmentin * counselled to avoid smoking and alcohol * will need ENT consultation for abnormal finding on CT soft tissue neck as he will need direct visualization * medication reviewed as below * symptomatic treatment. Review of Systems - Review of Systems ENT: negative: Ear Pain, Ear Discharge, Nose Pain, Nose Discharge, Nose Congestion, Mouth Pain, Mouth Swelling, Throat Pain, Throat Swelling, Other Respiratory: negative: Cough, Dry, Shortness of Breath, Hemoptysis, SOB with Excertion, Pleuritic Pain, Sputum, Wheezing Cardiovascular: negative: chest pain, palpitations, orthopnea, paroxysmal nocturnal dyspnea, edema, light headedness, other Gastrointestinal: negative: Nausea, Vomiting, Abdominal Pain, Diarrhea, Constipation, Melena, Hematochezia, Other Genitourinary: negative: Dysuria, Frequency, Incontinence, Hematuria, Retention , Other Musculoskeletal: negative: Neck Pain, Shoulder Pain, Arm Pain, Back Pain, Hand Pain, Leg Pain, Foot Pain, Other - Medications/Allergies Allergies/Adverse Reactions: Allergies Allergy/AdvReac Type Severity Reaction Status Date / Time No Known Drug Allergies Allergy Verified 11/20/17 16:48 Medications: Current Medications Acetaminophen (Tylenol) 1,000 mg PO Q6H PRN PRN Reason: Headache/Fever or Mild Pain Hydrocodone Bitart/Acetaminophen ([place] 5/325) 2 tab PO Q4H PRN PRN Reason: Severe Pain (7-10) Last Admin: 11/23/17 04:17 Dose: 2 tab Hydrocodone Bitart/Acetaminophen ([place] 5/325) 1 tab PO Q4H PRN PRN Reason: Moderate Pain (4-6) Last Admin: 11/22/17 20:03 Dose: 1 tab Al Hydroxide/Mg Hydroxide (Maalox) 15 ml PO Q4H PRN PRN Reason: Heartburn or Indigestion Artificial Tears (Tears Naturale) 0 drop EA EYE PRN PRN PRN Reason: Dry Eyes Aspirin (Ecotrin) 81 mg PO DAILY [facility] Last Admin: 11/23/17 07:49 Dose: 81 mg Atorvastatin Calcium (Lipitor) 80 mg PO DAILY [facility] Last Admin: 11/23/17 07:48 Dose: 80 mg Carvedilol (Coreg) 3.125 mg PO BID [facility] Last Admin: 08/20/18 07:49 Dose: 3.125 mg Chlorhexidine Gluconate (Chlorhexidine Gluconate) 15 ml SSP BID [facility] Last Admin: 11/23/17 09:18 Dose: 15 ml Clonidine (Catapres) 0.1 mg PO Q4H PRN PRN Reason: Systolic BP > 180 Clopidogrel Bisulfate (Plavix) 75 mg PO DAILY [facility] Last Admin: 11/23/17 07:49 Dose: 75 mg Digoxin (Lanoxin) 0.125 mg PO DAILY [facility] Last Admin: 11/23/17 07:49 Dose: 0.125 mg Famotidine (Pepcid) 20 mg PO BID [facility] Last Admin: 11/23/17 07:49 Dose: 20 mg Guaifenesin (Robitussin Sf) 200 mg PO Q4H PRN PRN Reason: Cough Hydralazine HCl (Apresoline) 10 mg SLOW IVP Q4H PRN PRN Reason: Systolic BP > 180 Piperacillin Sod/Tazobactam (Sod 3.375 gm/ Sodium Chloride) 100 mls @ 200 mls/ hr IVPB 0400,1000,1600,2200 [facility] Last Admin: 11/23/17 11:24 Dose: Not Given Vancomycin HCl 1.25 gm/ Sodium (Chloride) 250 mls @ 166.667 mls/hr IVPB BID [facility] Last Admin: 11/23/17 09:18 Dose: 250 mls Loperamide HCl (Imodium) 2 mg PO PRN PRN PRN Reason: Diarrhea/Loose Stools Loratadine (Claritin) 10 mg PO DAILYPRN PRN PRN Reason: Sinus Symptoms Magnesium Hydroxide (Milk Of Magnesium) 30 ml PO DAILYPRN PRN PRN Reason: Constipation Mineral Oil/White Petrolatum (Eucerin Cream) 0 gm TOP BIDPRN PRN PRN Reason: Dry Skin Miscellaneous Medication (Pharmacy To Dose) 1 each IVPB PRN PRN PRN Reason: . Nicotine (Nicoderm Patch) 21 mg TD Q24HR [facility] Last Admin: 11/22/17 20:04 Dose: 21 mg Ondansetron HCl (Zofran Odt) 4 mg PO Q6H PRN PRN Reason: Nausea/Vomiting Ondansetron HCl (Zofran) 4 mg IVP Q6H PRN PRN Reason: Nausea/Vomiting Phenol (Chloraseptic [place] 180 Ml Bot) 0 ml PO PRN PRN PRN Reason: Sore Throat Sacubitril/Valsartan (Entresto 24.5 Mg-25.5 Mg Tablet) 1 tab PO BID [facility] Last Admin: 11/23/17 07:49 Dose: 1 tab Senna (Senokot) 2 tab PO HSPRN PRN PRN Reason: Constipation Sodium Chloride ([place] Nasal [place] 0.65%) 0 ml EA NARE QIDPRN PRN PRN Reason: Nasal Congestion Sodium Chloride (Flush - Normal Saline) 10 ml IVF Q12HR [facility] Last Admin: 11/23/17 07:49 Dose: 10 ml Sodium Chloride (Flush - Normal Saline) 10 ml IVF PRN PRN PRN Reason: Saline Flush Last Admin: 11/23/17 04:15 Dose: 10 ml Zolpidem Tartrate (Ambien) 5 mg PO HSPRN PRN PRN Reason: Insomnia
--- NOTE | 2017-11-23 12:09 | DIS ---
PRIMARY CARE PHYSICIAN: Delilah Hess DO DATE OF ADMISSION: 11/20/2017 DATE OF DISCHARGE: 11/23/2017 DISCHARGE DISPOSITION: Home. PRIMARY DISCHARGE DIAGNOSES: Submandibular abscess, status post incision and drainage. SECONDARY DISCHARGE DIAGNOSES: Tobacco abuse disorder, macrocytic anemia, hypertension, dyslipidemia , coronary artery disease, and chronic systolic heart failure stage C. PRIMARY PROCEDURE/OPERATION: I&D was performed by Dr. Jyoti Munroe for submandibular abscess tooth #18 was extracted. RADIOLOGICAL INVESTIGATION: Soft tissue neck CT scan showed inflammatory process in the left side of the oral cavity submandibular abscess. There was bulge in soft tissue of the right nasopharynx, geovanny picious for nasopharyngeal carcinoma. SIGNIFICANT LABORATORY DATA: WBC 9.7, hemoglobin 12.3, platelet 262. Sodium 140, potassium 3.8, BUN 8, creatinine 0.76, calcium 8.3. LFT normal. CRP 8.09. Culture is pending. DISCHARGE MEDICATIONS: Augmentin 875 mg p.o. b.i.d. for 10 days, Florastor 250 mg p.o. daily, Entres to one tablet twice daily, chlorhexidine 15 mL SSP b.i.d., aspirin 81 mg daily, digoxin 125 mcg p.o. daily, Plavix 75 mg p.o. daily, Coreg 3.125 mg p.o. b.i.d., Lipitor 80 mg p.o. daily, nitroglycerin p .r.n. for chest pain. CONTRAINDICATION: None. CODE STATUS: FULL CODE. INPATIENT CONSULTANTS: Dr. Jyoti Munroe was consulted while in hospital. The patient is instructe d to follow up with ENT doctor for evaluation of larynx to rule out nasopharyngeal carcinoma based on abnormal finding on CT scan. Patient will follow up with Dr. Jyoti Munroe. HOSPITAL COURSE: A 56-year-old male with above-mentioned medical problem, who was admitted by Dr. Alaina kang. Please see his H&P for further detail. The patient was having left-sided neck pain. He was fou nd with sublingual, submandibular abscess. Patient also had an infected tooth. Oral surgeon was con sulted and they removed a #18 teeth as well as I&D was performed for sublingual submandibular abscess . Culture was in process. He was treated with vancomycin and Zosyn. On discharge, we changed to Au gmentin. The patient's pain significantly improved. Patient also had some questionable right-sided nasopharyngeal mass versus cyst and that is why the patient will need ENT evaluation. PHYSICAL EXAMINATION: Patient is seen and examined at bedside today. VITAL SIGNS: Currently, temperature 98.0, pulse 56, respiratory rate 16, saturation 97% on room air, weight 117 pounds. GENERAL: The patient is currently alert, awake, no obvious acute distress. HEAD: Normocephalic, atraumatic. EYES: Pupils round, reactive to light. Extraocular muscle intact. ENT: Oropharynx within normal limits. Moist mucous membranes. NECK: Supple. Mild swelling noted on the left side. No palpable lymph node. No JVD. LUNGS: Clear to auscultation without any rhonchi or rales. CARDIAC: S1 and S2 regular. No murmur, no gallop, no rub. ABDOMEN: Soft and benign. EXTREMITIES: No edema. NEUROLOGIC: Nonfocal examination. At this point, I am trying to consult ENT while in hospital for his abnormality on CT scan for direct laryngoscopy evaluation if the patient wanted to stay here in hospital for today. If not, then theresa ent has to follow up with the ENT doctor to rule out nasopharyngeal carcinoma and he will need ENT fo llow up very closely.
--- NOTE | 2017-11-24 10:11 | CON ---
DATE OF CONSULTATION: 11/22/2017 REASON FOR CONSULTATION: Consultation concerning findings on CT with [facility]. SUBJECTIVE: The patient appears to be doing well post I&D of tooth and tooth extraction. CT finding s showed some growth within both the right nasopharynx region and then the area of the larynx so ENT was called for direct visualization to ensure there is nothing that needs to be taken care of immedia tely. The patient is doing well. His vital signs are stable. He was breathing and swallowing gage lly with no other concerns. OBJECTIVE: A flexible scope was used to visualize the entire nasopharynx region. Under direct visua lization, the right side nasopharynx region showed some increased what appeared to be mucoid type tis jo ann; however, it was not cancerous in appearance. Down the pharynx region to the larynx everything s eemed normal. Mild smoking changes with some swelling in the surrounding tissue, possibly some mild GERD changes; however, no necrotic type tissue or plaque-like tissue that would indicate any kind of a cancerous process. ASSESSMENT: Normal findings. PLAN: Allowed for discharge yesterday and we will see back in the office in 2 weeks just to chanda antonio and look one more time at the areas of concern.
== END 2017-11-23 15:04 | disposition home or self-care (01) | DRG 158 ==
LOC: ERS 14:22 → T4-B 16:30
PROVIDERS: ADMIT Family Medicine; ATTEND Family Medicine
PROC: 0W953ZZ Drainage of Lower Jaw, Percutaneous Approach (ICD-10-PCS; principal; 2017-11-21)
PROC: 0CTW0Z0 Resection of Upper Tooth, Single, Open Approach (ICD-10-PCS; 2017-11-21)
DX: K12.2 Cellulitis and abscess of mouth (principal); I50.22 Chronic systolic (congestive) heart failure; I11.0 Hypertensive heart disease with heart failure; I25.10 Atherosclerotic heart disease of native coronary artery without angina pectoris; I25.2 Old myocardial infarction; I25.5 Ischemic cardiomyopathy; E78.5 Hyperlipidemia, unspecified; F17.210 Nicotine dependence, cigarettes, uncomplicated; Z95.810 Presence of automatic (implantable) cardiac defibrillator; Z98.61 Coronary angioplasty status; Z79.02 Long term (current) use of antithrombotics/antiplatelets; K05.219 Aggressive periodontitis, localized, unspecified severity
CPT/HCPCS: 36415; 80053; 80202; 85007; 85025; 85027; 86140; 87070; 87077; 87205; 99285; A4216; J2001; J2405; J2543; J2704; J3010; J3370; J7050

== ENCOUNTER 2018-03-03 09:11 | Outpatient (CLI) | payer BC ==
--- NOTE | 2018-03-03 11:12 | CT ---
CT PULMONARY LUNG SCAN: Clinical history: 30+ year smoking history, tobacco abuse. Nicotine dependence. FINDINGS: There is a subpleural noncalcified right middle lobe nodule measuring 9 mm. Punctate 1-2 mm nodule is seen along the right major fissure, laterally, within the right lower lobe. There is a vague ground glass nodule of the left lower lobe measuring 4 mm. There is pulmonary emphysema. Subpleural patchy opacities may relate to volume loss or mild component of interstitial lung disease such as fibrosis. Correlate clinically. No pleural fluid. There is diff use vascular disease with evidence of prior stent placement suggested at the coronary arteries. IMPRESSION: Lung RADS category 4A, 9 mm subpleural nodule of the right middle lobe. Given size greater than [address] to evaluate for hypermetabolic activity. POS: RAMÓN
== END 2018-03-03 09:12 | disposition home or self-care (01) ==
LOC: CT 09:11
PROVIDERS: ATTEND Internal Medicine Hematology & Oncology
DX: F17.210 Nicotine dependence, cigarettes, uncomplicated (principal); R91.1 Solitary pulmonary nodule
CPT/HCPCS: G0297

== ENCOUNTER 2018-03-12 08:00 | Outpatient (CLI) | payer BC ==
--- NOTE | 2018-03-12 12:14 | PET ---
PET SCAN WITH CT ATTENUATION CORRECTION: HISTORY: 9.0 mm middle lobe pulmonary nodule. COMPARISON: None. CORRELATION: Chest CT dated 03/03/18. Postcontrast soft tissue neck CT dated 11/10/17. TECHNIQUE: PET scanning with CT attenuation correction is performed from the base of the brain to the proximal t highs following the intravenous administration of 12.5 mCi F18-FDG. FINDINGS: HEAD/NECK: There is subtle upper normal FDG localization involving a left Level III lymph node. Correlation made with previous CT does demonstrate a 0.8 x 1.3 cm lymph node. Maximum SUV is 2.1. Some additional lym ph nodes with upper normal FDG avidity are noted. In the left aryepiglottic fold, there is a previously noted hypodense mass, submucosal in location. T he maximum SUV of this lesion is 2.4, which is also at the upper limits of normal. CHEST: Nodule noted in the middle lobe is identified. No FDG avidity. ABDOMEN/PELVIS: No abnormal FDG avidity. OSSEOUS STRUCTURES: No abnormal FDG avidity. IMPRESSION: 1. No abnormal FDG avidity associated with the nodule in the middle lobe. 2. Upper normal FDG avidity noted with a submucosal mass in the left aryepiglottic fold, as well as associated with left Level III lymph node. Consider ENT consultation. POS: RAMÓN
== END 2018-03-12 08:01 | disposition home or self-care (01) ==
LOC: PET 08:00
PROVIDERS: ATTEND Internal Medicine Hematology & Oncology
DX: R91.1 Solitary pulmonary nodule (principal); J38.7 Other diseases of larynx
CPT/HCPCS: 78815; A9552

== ENCOUNTER 2019-05-18 23:32 | Inpatient (IN) | payer MEDICARE, BC ==
[2019-05-19 00:37] LABS: #Basophils 0.1 thou/uL (0.0-0.2); #Eosinphils 0.2 thou/uL (0.0-0.7); #Lymphocytes 5.3 thou/uL (1.20-3.40); #Monocytes 0.9 thou/uL (0.11-0.59); #Neutrophils 6.4 thou/uL (1.40-6.50); %Eosinophils 1.2 % (0.0-10.0); %Lymphocytes 41.2 % (21.0-51.0); %Monocytes 6.9 % (0.0-10.0); %Neutrophils 49.7 % (42.0-75.0); Hemoglobin 15.9 g/dL (14.0-18.0); Mean Corpuscular HGB CONC 34.1 g/dL (32.0-36.0); Mean Corpuscular Hemoglobin 34.6 pg (27.0-31.0); Mean Platelet Volume 7.7 fL (7.4-10.4); Platelet Count 286 thou/uL (130-400); RBC Distribution Width 11.9 % (11.5-14.5); White Blood Cell (WBC) Count 12.9 thou/uL (4.8-10.8)
[2019-05-19 01:00] LABS: ALT (SGPT) 20 U/L (8-55); AST (SGOT) 20 U/L (5-34); Albumin 4.5 g/dL (3.5-5.0); Alkaline Phosphatase 118 U/L (40-110); Anion Gap 13 mmol/L (10-20); BUN (Urea Nitrogen) 15 mg/dL (8.4-25.7); Bilirubin, Total 0.2 mg/dL (0.2-1.2); Calc. Creatinine Clearance 0 mL/min (70-130); Calcium 9.3 mg/dL (7.8-10.44); Carbon Dioxide 25 mmol/L (22-29); Chloride 107 mmol/L (98-107); Estimated GFR-MDRD Greater than 90; Globulin 2.5 g/dL (2.4-3.5); Glucose 82 mg/dL (70-105); Lipase 64 U/L (8-78); Potassium 4.3 mmol/L (3.5-5.1); Sodium 141 mmol/L (136-145)
[2019-05-19 01:21] LABS: CKMB 1.5 ng/mL (0-6.6)
[2019-05-19 03:22] LABS: Troponin I 0.043 ng/mL (< 0.028)
[2019-05-19 04:03] VITALS: BMI 19.4
[2019-05-19 06:14] LABS: Troponin I 0.041 ng/mL (< 0.028)
[2019-05-19] MEDS ORDERED: Ondansetron ODT 4 MG TAB PO PRN (06:47)
[2019-05-19] MEDS ORDERED: Acetaminophen 325 MG TAB PO PRN (06:47)
[2019-05-19] MEDS ORDERED: Bisacodyl 10 MG SUPP PR PRN (06:47)
[2019-05-19] MEDS ORDERED: Cepastat Lozenges 1 LOZ PO PRN (06:47)
[2019-05-19] MEDS ORDERED: Ondansetron PF 4 MG/2 ML Vial IVP PRN (06:47)
[2019-05-19] MEDS ORDERED: HYDROcodone/Acetaminophen 5/325 mg Tablet PO PRN (06:47)
[2019-05-19] MEDS ORDERED: Diabetic Tussin 200 MG/10 ML UDCUP PO PRN (06:47)
[2019-05-19] MEDS ORDERED: hydrALAZINE 20 MG/ML VIAL SLOW IVP PRN (06:47)
[2019-05-19] MEDS ORDERED: Nitroglycerin 0.4 MG TAB (25 Tab Bottle) PO PRN (06:47)
[2019-05-19] MEDS ORDERED: Senokot S 8.6-50 MG TAB PO PRN (06:47)
[2019-05-19] MEDS ORDERED: Calcium Carbonate 500 MG ChewTAB PO PRN (06:47)
[2019-05-19] MEDS ORDERED: Zolpidem Tartrate 5 MG TAB PO PRN (06:47)
--- NOTE | 2019-05-19 07:49 | RAD ---
RADIOGRAPH CHEST 1 VIEW: DATE: 05/19/2019 HISTORY: 58-year-old male with chest pain FINDINGS: There are no airspace densities, pulmonary edema, pneumothorax, or cardiomegaly. The lateral costophr enic angles are sharp. There is a left subclavian single lead AICD. IMPRESSION: No acute cardiopulmonary findings.
[2019-05-19] MEDS ORDERED: Metoprolol Tartrate 25 MG TAB PO SCH (09:00)
[2019-05-19] MEDS: Aspirin 325 mg Enteric Coated Tablet PO SCH (09:02)
[2019-05-19] MEDS: Famotidine 20 MG TAB PO SCH ×2 (09:02→20:02)
[2019-05-19] MEDS ORDERED: Iopamidol 370 76% 100 ML VIAL ONE (11:13)
[2019-05-19] MEDS ORDERED: Fentanyl 100 MCG/2 ML VIAL ONE (12:21)
[2019-05-19] MEDS ORDERED: Heparin (Artline) 1,000 ML ONE (12:21)
[2019-05-19] MEDS ORDERED: Lidocaine 1% (PF) 30 ML VIAL ONE (12:21)
[2019-05-19] MEDS ORDERED: Midazolam HCl 2 mg/2 ml Vial ONE (12:21)
[2019-05-19] MEDS ORDERED: Heparin 10,000 UNITS/1 ML VIAL ONE (12:36)
[2019-05-19] MEDS ORDERED: Clopidogrel Bisulfate 300 MG TAB ONE (12:37)
[2019-05-19] MEDS ORDERED: Nitroglycerin 100MG/250ML BOT 250 ML ONE (12:45)
[2019-05-19] MEDS ORDERED: Heparin (Artline) 500 ML ONE (13:03)
[2019-05-19] MEDS ORDERED: Nitroglycerin 2% Ointment 1 INCH/1 GM Packet TOP SCH (14:00)
--- NOTE | 2019-05-19 14:34 | HP ---
PRIMARY CARE PHYSICIAN: [facility]. REASON FOR ADMISSION: Angina. HISTORY OF PRESENT ILLNESS: A 58-year-old male, who has underlying history of hypertension, dyslipidemia, and coronary artery disease with several stents, who came to emergency room for evaluation of chest pain. The patient reports that he had chest pressure and chest tightness substernal in location yesterday around 4 p.m. and that resolved with nitroglycerin. Subsequently, the patient was doing okay up until around 10:30 when he was experiencing more intense substernal pain which was radiated to his neck, and he felt mild nausea and pain, responded to nitroglycerin, but second time his pain was pretty much a little bit longer duration and it was more intense and that is why he decided to come to emergency room for evaluation. He called Paramedics and the patient was brought to [facility] Emergency Room where he was evaluated. At that time, his electrocardiogram was nonspecific. He had a slightly elevated troponin. The patient was asymptomatic and he was admitted overnight for chest pain and ruled out ACS. His troponin remained elevated. PAST MEDICAL HISTORY: 1. Ischemic cardiomyopathy with EF 30% to 35%. 2. Hypertension. 3. Dyslipidemia. 4. Coronary artery disease with a history of UT with stent placement. 5. Chronic systolic heart failure with EF 30% to 35%. 6. Ongoing tobacco abuse disorder. PAST SURGICAL HISTORY: 1. ICD placement in 2009. 2. Cardiac catheterization and stent placement. 3. Hernia repair. ALLERGIES: NO KNOWN DRUG ALLERGIES. FAMILY HISTORY: No strong family history of premature coronary artery disease, stroke, or cancer. SOCIAL HISTORY: The patient continues to smoke about 1 pack per day. No history of alcohol or other illicit drug abuse. REVIEW OF SYSTEMS: CONSTITUTIONAL: Negative for weight loss or gain, ability to conduct usual activities. SKIN: Negative for rash, itching. EYES: Negative for double vision, pain. ENT/MOUTH: Negative for nose bleeding, neck stiffness, pain, tenderness. CARDIOVASCULAR: Negative for palpitations, dyspnea on exertion, orthopnea. RESPIRATORY: Negative for shortness of breath, wheezing, cough, hemoptysis, fever or night sweats. GASTROINTESTINAL: Negative for poor appetite, abdominal pain, heartburn, nausea, vomiting, constipation, or diarrhea. GENITOURINARY: Negative for urgency, frequency, dysuria, nocturia. MUSCULOSKELETAL: Negative for pain, swelling. NEUROLOGIC/PSYCHIATRIC: Negative for anxiety, depression. ALLERGY/IMMUNOLOGIC: Negative for skin rash, bleeding tendency. Please see my HPI for pertinent positives and negatives. All other review of systems reviewed and negative except as mentioned in HPI. CURRENT HOME MEDICATIONS: 1. Lipitor 80 mg p.o. daily. 2. Coreg 3.125 mg p.o. b.i.d. 3. Plavix 75 mg daily. 4. Digoxin 125 mcg p.o. daily. EMERGENCY ROOM COURSE: Reviewed. PHYSICAL EXAMINATION: VITAL SIGNS: On arrival, blood pressure 180/109, pulse 75, respiratory rate 15, temperature 99, saturation 97% on room air, weight 53.1 kg. GENERAL: The patient is currently alert, awake, in no acute distress. HEAD: Normocephalic and atraumatic. EYES: Pupils round and reactive to light. Extraocular muscles intact. ENT: Oropharynx within normal limits. Moist mucous membranes. No oral lesion. No pharyngeal erythema. No exudate. NECK: Supple. No JVD. No meningeal signs of irritation. LUNGS: Clear to auscultation without any rhonchi or rales. CARDIAC: S1 and S2 regular. No murmur. No gallop. No rub. ABDOMEN: Soft, bowel sounds present, nontender, nondistended. No organomegaly. No mass. EXTREMITIES: No edema. Good distal pulsation. NEUROLOGIC: Nonfocal examination. IMAGING STUDIES: EKG showing normal sinus rhythm, no T-wave abnormality in inferior leads. Chest x-ray based on my review no acute cardiopulmonary process. SIGNIFICANT LABORATORY DATA: CBC: WBC 12.9, hemoglobin 15.9, MCV 102, platelet 286. BMP: Sodium 141, potassium 4.3, chloride 107, carbon dioxide 25, BUN 15, creatinine 0.82, glucose 82, calcium 9.3. LFT: AST 20, ALT 20, alkaline phosphatase 118, albumin 4.5, lipase 64. CK-MB 1.5. Troponin 0.029, then 0.043, and then 0.041. ASSESSMENT AND PLAN: 1. Unstable angina. The patient has typical anginal pain twice within 24 hours and he is taking already aspirin. He has already known case of coronary artery disease and multiple risk factors. At this point, we will keep him n.p.o. and we will consult Cardiology. We will obtain echocardiography. Meanwhile, we will continue with aspirin 325 mg p.o. daily, Lipitor 80 mg p.o. at bedtime, Coreg 3.125 mg p.o. b.i.d. Based on his hemodynamics, we will consider adding DANIEL inhibitor if blood pressure permits. 2. Ischemic cardiomyopathy with chronic systolic heart failure with EF 30% to 35%. We will repeat echocardiography during this admission, continue Coreg and digoxin for now, and we will consider adding DANIEL inhibitor if blood pressure permits. 3. Dyslipidemia. Check lipid profile tomorrow and continue Lipitor 80 mg p.o. at bedtime. 4. Tobacco abuse disorder. Smoking cessation counseling given. Healthy lifestyle measure discussed with the patient. 5. Macrocytosis without anemia. We will consider adding folic acid and vitamin B12 therapy. 6. DVT prophylaxis. Lovenox 40 mg subcu daily. 7. GI prophylaxis. Pepcid 20 mg b.i.d. CODE STATUS: The patient is full code. The patient does not have any surrogate decision maker. DISPOSITION PLAN: Based on Cardiology recommendation. We are expecting to stay in 24 hours and we will consider discharge tomorrow if cardiac care is negative. Job ID: [id number]
--- NOTE | 2019-05-19 18:54 | CON ---
DATE OF CONSULTATION: 05/19/2019 REASON FOR CONSULTATION: Non-STEMI. HISTORY OF PRESENT ILLNESS: Mr. Avila is a pleasant 58-year-old white gentleman, who comes to the hospital for chest pain. He is very well known to myself. He has a history of coronary artery disease and ischemic cardiomyopathy. He came in with chest tightness to his jaw. This was exact same pain he had when he needed stenting in the past on his LAD. He was admitted. Troponins have been in the indeterminate range. Cardiology is being consulted for this. Troponin went as high as 0.04. On my evaluation, Mr. Avila is pain free. PAST MEDICAL HISTORY: 1. Ischemic cardiomyopathy with a reduced EF at about 30% to 35%. 2. Presence of an AICD. 3. Coronary artery disease, status post stenting to the RCA, left circumflex, and LAD. 4. Hypertension. 5. Hyperlipidemia. 6. Ongoing tobacco abuse. PAST SURGICAL HISTORY: 1. ICD placed in 2009. 2. Cardiac catheterization, stent placed multiple times above. 3. Hernia repair. ALLERGIES: NO KNOWN DRUG ALLERGIES. OUTPATIENT MEDICATIONS: 1. Lipitor 80 mg daily. 2. Coreg 3.125 b.i.d. 3. Plavix 75 mg a day. 4. Digoxin 125 mcg a day. 5. Aspirin 81 a day. FAMILY HISTORY: Noncontributory. SOCIAL HISTORY: Smokes pack a day. No alcohol or drugs. REVIEW OF SYSTEMS: A 12-point review of systems was done and was all negative unless stated in the history of present illness. PHYSICAL EXAMINATION: VITAL SIGNS: Temperature 97.8, pulse 62, respiratory rate 18, saturating 100% on room air, blood pressure 151/87. GENERAL: Awake, alert, oriented x3. No distress. HEENT: Normocephalic and atraumatic. NECK: Supple. LUNGS: Clear. CARDIOVASCULAR: S1 and S2. No S3 or S4. No murmurs. ABDOMEN: Soft. Positive bowel sounds. EXTREMITIES: No edema. SKIN: Warm and dry. LABORATORY DATA: Laboratory work was reviewed. CBC with a white count of 12, hemoglobin of 15, hematocrit 46, platelet count of 286. Coags were reviewed. Chemistries were reviewed, unremarkable. Troponin was 0.02, 0.04, and 0.04. GFR was greater than 90 with a creatinine 0.82. EKG was reviewed. ASSESSMENT AND PLAN: 1. Chest pain. 2. Concern for [id number] myocardial infarction. 3. Coronary artery disease. 4. Ischemic cardiomyopathy. PLAN: We spoke about the risks and benefits of a heart catheterization. He most likely needs this further risk stratification. He has had them several times in the past. He agrees to proceed. Risks included, but not limited to stroke, SD, , bleeding, need for blood transfusion, limb loss, organ loss. He understands verbalized understanding of this and agrees to proceed. Drug-eluting stents if needed. Right groin access. Further recommendations per results of coronary angiogram. Job ID: [id number]
[2019-05-19] MEDS: Carvedilol 3.125 MG TAB PO SCH (20:03)
[2019-05-19] MEDS ORDERED: Atorvastatin Calcium 40 MG TAB PO SCH (21:00)
[2019-05-20 05:31] LABS: Cardiac Risk 6.2 (Less than 4.5)
[2019-05-20] MEDS: Aspirin 325 mg Enteric Coated Tablet PO SCH (08:59)
[2019-05-20] MEDS: Carvedilol 3.125 MG TAB PO SCH (09:00)
[2019-05-20] MEDS ORDERED: Clopidogrel Bisulfate 75 MG TAB PO SCH (09:00)
[2019-05-20] MEDS ORDERED: Folic Acid 1 MG TAB PO SCH (09:00)
[2019-05-20] MEDS ORDERED: Enoxaparin Sodium 40 MG/0.4 ML SYRINGE SC SCH (09:00)
[2019-05-20] MEDS ORDERED: Lisinopril 2.5 MG TAB PO SCH (09:00)
[2019-05-20] MEDS ORDERED: Digoxin 0.125 MG TAB PO SCH (09:00)
[2019-05-20] MEDS: Famotidine 20 MG TAB PO SCH (09:01)
[2019-05-20] MEDS: Cyanocobalamin (Vitamin B-12) 1,000 MCG TAB PO SCH ×2 (09:01→09:04)
--- NOTE | 2019-05-20 11:01 | PDOC.HOSPP ---
- Subjective Encounter Date: 05/20/19 Encounter Time: 08:40 Subjective: Patient seen and examined. No new complaints. No overnight events - Objective Vital Signs & Weight: Vital Signs (12 hours) Temp Pulse Resp BP BP Pulse Ox 05/20/19 08:59 75 144/68 H 05/20/19 08:01 95 05/20/19 07:50 98 F 63 17 135/71 95 05/20/19 04:35 97.8 F 79 14 124/62 94 L 05/19/19 23:00 66 16 133/81 95 Weight Weight 116 lb 13.52 oz I&O: 05/19/19 05/20/19 05/21/19 06:59 06:59 06:59 Intake Total 240 749 Output Total 0 Balance 240 749 Result Diagrams: 05/18/19 23:49 05/18/19 23:49 Radiology Reviewed by me: Yes EKG Reviewed by me: Yes Hospitalist ROS - Review of Systems ENT: denies: ear pain, ear discharge, nose pain, nose discharge, nose congestion , mouth pain, mouth swelling, throat pain, throat swelling, other Respiratory: denies: cough, dry, shortness of breath, hemoptysis, SOB with excertion, pleuritic pain, sputum, wheezing, other Cardiovascular: denies: chest pain, palpitations, orthopnea, paroxysmal noc. dyspnea, edema, light headedness, other Gastrointestinal: denies: nausea, vomiting, abdominal pain, diarrhea, constipation, melena, hematochezia, other Genitourinary: denies: dysuria, frequency, incontinence, hematuria, retention, other Musculoskeletal: denies: neck pain, shoulder pain, arm pain, back pain, hand pain, leg pain, foot pain, other - Medication Medications: Active Medications Generic Name Dose Route Start Last Admin Trade Name Freq PRN Reason Stop Dose Admin Aspirin 325 mg 05/19/19 09:00 05/20/19 08:59 Ecotrin PO 325 mg DAILY TERRY Administration Atorvastatin Calcium 80 mg 05/19/19 21:00 05/19/19 20:02 Lipitor PO 80 mg HS TERRY Administration Carvedilol 3.125 mg 05/19/19 21:00 05/20/19 09:00 Coreg PO 3.125 mg BID TERRY Administration Clopidogrel Bisulfate 75 mg 05/20/19 09:00 05/20/19 09:00 Plavix PO 75 mg DAILY TERRY Administration Cyanocobalamin 1,000 mcg 05/20/19 09:00 05/20/19 09:04 Vitamin B-12 PO Not Given DAILY TERRY Digoxin 0.125 mg 05/20/19 09:00 05/20/19 09:01 Lanoxin PO 0.125 mg DAILY TERRY Administration Enoxaparin Sodium 40 mg 05/20/19 09:00 05/20/19 09:01 Lovenox SC 40 mg 0900 TERRY Administration Famotidine 20 mg 05/19/19 09:00 05/20/19 09:01 Pepcid PO 20 mg BID TERRY Administration Folic Acid 1 mg 05/20/19 09:00 05/20/19 09:00 Folvite PO 1 mg DAILY TERRY Administration Lisinopril 2.5 mg 05/20/19 09:00 05/20/19 08:59 Zestril PO 2.5 mg DAILY TERRY Administration Sodium Chloride 10 ml 05/19/19 09:00 05/20/19 09:02 Flush - Normal Saline IVF 10 ml Q12HR TERRY Administration - Exam General Appearance: NAD, awake alert Eye: PERRL, anicteric sclera ENT: normocephalic atraumatic, no oropharyngeal lesions Neck: supple, symmetric, no JVD, no thyromegaly Heart: RRR, no murmur, no gallops, no rubs Respiratory: CTAB, no wheezes, no rales, no ronchi Gastrointestinal: soft, non-tender, non-distended, normal bowel sounds Extremities: no cyanosis, no clubbing, no edema Skin: normal turgor, no lesions Neurological: cranial nerve grossly intact, no focal deficits Musculoskeletal: normal tone, normal strength Psychiatric: normal affect, normal behavior Hosp A/P (1) NSTEMI (non-ST elevated myocardial infarction) Code(s): I21.4 - NON-ST ELEVATION (NSTEMI) MYOCARDIAL INFARCTION Status: Acute (2) CAD (coronary artery disease) Code(s): I25.10 - ATHSCL HEART DISEASE OF [place] CORONARY ARTERY W/O ANG PCTRS Status: Chronic (3) Chronic systolic heart failure, ACC/AHA stage C Code(s): I50.22 - CHRONIC SYSTOLIC (CONGESTIVE) HEART FAILURE Status: Chronic (4) Dyslipidemia Code(s): E78.5 - HYPERLIPIDEMIA, UNSPECIFIED Status: Chronic (5) Hypertension Code(s): I10 - ESSENTIAL (PRIMARY) HYPERTENSION Status: Chronic (6) Macrocytic anemia Code(s): D53.9 - NUTRITIONAL ANEMIA, UNSPECIFIED Status: Chronic (7) Tobacco abuse Code(s): Z72.0 - TOBACCO USE Status: Chronic - Plan old records reviewed/req, plan discussed w/ family pt is not tolerating ACEI and ARB as he gets hypotensive and he gets cough, so not given and contraindicated, confirmed with pt and his cardiology see discharge dayana
--- NOTE | 2019-05-20 11:58 | DIS ---
DATE OF ADMISSION: 05/19/2019 DATE OF DISCHARGE: 05/20/2019 PRIMARY CARE PHYSICIAN: Delilah Hess DO. DISCHARGE DISPOSITION: Home. PRIMARY DISCHARGE DIAGNOSIS: [id number] myocardial infarction. SECONDARY DISCHARGE DIAGNOSES: 1. Tobacco abuse disorder. 2. Macrocytic anemia. 3. Hypertension. 4. Dyslipidemia. 5. Chronic systolic heart failure with ejection fraction 35%. 6. Coronary artery disease. PRIMARY PROCEDURES/OPERATIONS: Cardiac catheterization was performed by Dr. Pierre, and the patient had a patent left anterior descending stent, severe mid and distal right coronary artery disease, and stent was placed in distal and proximal right coronary artery. RADIOLOGICAL INVESTIGATION: Chest x-ray, normal. SIGNIFICANT LABORATORY DATA: MCV 102, WBC 12.9, hemoglobin 15.9. Creatinine 0.82. Electrolytes, normal. LFT, normal. Troponin 0.041. LDL 87. Lipase 64. DISCHARGE MEDICATIONS: 1. Lipitor 80 mg p.o. daily. 2. Coreg 3.125 mg b.i.d. 3. Plavix 75 mg daily. 4. Digoxin 125 mcg p.o. daily. 5. Aspirin 325 mg p.o. daily. 6. Vitamin B12 of 1000 mcg p.o. daily. 7. Pepcid 20 mg p.o. b.i.d. 8. Folic acid 1 mg p.o. daily. CONTRAINDICATION: The patient is not on DANIEL inhibitor or ARB in view of systolic heart failure because in the past and current recently, the patient has not tolerated this medication, and I have confirmed with Cardiology. They tried all their efforts to put him on DANIEL inhibitor and ARB and alternative medication, but because of hypotension, it was never been successful, and that is why he was not given prescription. CODE STATUS: Full code. INPATIENT CARE ASSISTANT: Dr. Pierre. TEST RESULTS PENDING ON DISCHARGE: None. ALLERGIES: NO KNOWN DRUG ALLERGIES. DISCHARGE PLAN: Posthospital, the patient will follow up with primary care physician and Dr. Pierre. HOSPITAL COURSE: A 58-year-old male, who was admitted by me. Please see my HPI for further details. The patient was having classic recurrent angina before coming to the hospital, and he had EKG changes and elevated troponin. The patient was meeting unstable angina/oxl-JY-lndtizisj W[place] criteria. We have to keep him as inpatient status. We consulted Cardiology. Cardiology did cardiac catheterization, and the patient had a stent placed in proximal and distal RCA, and the patient was recommended to continue dual antiplatelet therapy for at least 1 year. We have provided the patient education about smoking cessation counseling. All new medication prescription was given to him. He is not on DANIEL inhibitor and ARB as mentioned in contraindication. The patient is overall stable for discharge today. Job ID: [id number]
[2019-05-20 12:51] VITALS: BP 126/72; TEMP 98
--- NOTE | 2019-05-21 12:05 | EKG ---
Test Reason : Blood Pressure : / mmHG Vent. Rate : 081 BPM Atrial Rate : 081 BPM P-R Int : 134 ms QRS Dur : 102 ms QT Int : 372 ms P-R-T Axes : 076 066 137 degrees QTc Int : 432 ms Normal sinus rhythm Possible Left atrial enlargement T wave abnormality, consider inferior ischemia Abnormal ECG Confirmed by BRIAN OZUNA ([id number]), department editor MEGAN TEJADA ([id number]) on 05/21/2019 12:04:50 PM Referred By: Confirmed By:BRIAN OZUNA
== END 2019-05-20 15:07 | disposition home or self-care (01) | DRG 247 ==
LOC: ERS 23:32 → OBSVTOIN 05-19 03:20 → 2SE 05-19 03:20 → 2NO 05-19 22:25
PROVIDERS: ADMIT Internal Medicine; ATTEND Internal Medicine
PROC: 027034Z Dilation of Coronary Artery, One Artery with Drug-eluting Intraluminal Device, Percutaneous Approach (ICD-10-PCS; principal; 2019-05-19)
PROC: 4A023N7 Measurement of Cardiac Sampling and Pressure, Left Heart, Percutaneous Approach (ICD-10-PCS; 2019-05-19)
PROC: B2111ZZ Fluoroscopy of Multiple Coronary Arteries using Low Osmolar Contrast (ICD-10-PCS; 2019-05-19)
PROC: B2151ZZ Fluoroscopy of Left Heart using Low Osmolar Contrast (ICD-10-PCS; 2019-05-19)
DX: I21.4 Non-ST elevation (NSTEMI) myocardial infarction (principal); I50.22 Chronic systolic (congestive) heart failure; D53.9 Nutritional anemia, unspecified; E78.5 Hyperlipidemia, unspecified; I11.0 Hypertensive heart disease with heart failure; I25.10 Atherosclerotic heart disease of native coronary artery without angina pectoris; I25.2 Old myocardial infarction; Z79.02 Long term (current) use of antithrombotics/antiplatelets; Z79.899 Other long term (current) drug therapy; F17.210 Nicotine dependence, cigarettes, uncomplicated; I25.5 Ischemic cardiomyopathy
CPT/HCPCS: 36415; 71045; 80053; 80061; 82553; 83690; 84484; 85025; 85347; 90471; 90732; 92928; 93005; 93010; 94760; 99152; 99153; C1769; C1874; C1887; C9600; G0009; J1644; J1650; J2001; J2250; J3010; Q9967

== ENCOUNTER 2023-04-30 09:22 | Outpatient (CLI) | payer MEDICARE, OTHER | END 2023-04-30 09:23 | disposition home or self-care (01) | LOC: SJX 09:22 | PROVIDERS: ATTEND Internal Medicine Cardiovascular Disease | DX: I63.9 Cerebral infarction, unspecified (principal); I65.22 Occlusion and stenosis of left carotid artery | CPT/HCPCS: 70498; 82565 ==

== ENCOUNTER 2023-05-15 13:30 | Inpatient (IN) | payer MEDICARE ==
[2023-05-19] MEDS ORDERED: Protamine Sulfate 50 MG/5 ML VIAL ONE (06:20)
[2023-05-19] MEDS ORDERED: EPINEPHrine 1 MG/ML VIAL ONE (06:20)
[2023-05-19] MEDS ORDERED: Bupivacaine PF 0.5% 30 ML VIAL ONE (06:20)
[2023-05-19] MEDS ORDERED: Heparin 5,000 UNITS/ML VIAL ONE (06:20)
[2023-05-19] MEDS ORDERED: CEFAZOLIN 2 GM VIAL ONE (06:52)
[2023-05-19] MEDS ORDERED: Sodium Chloride 0.9% 100 ML ONE (06:52)
[2023-05-19] MEDS ORDERED: Rocuronium Bromide 10 MG/ML (10ML VIAL) ONE ×2 (07:14→07:15)
[2023-05-19] MEDS ORDERED: PROPOFOL 20 ML ONE (07:14)
[2023-05-19] MEDS ORDERED: fentaNYL 50 mcg/mL 1 mL Vial ONE (07:14)
[2023-05-19] MEDS ORDERED: Ondansetron PF 4 MG/2 ML Vial ONE (07:28)
[2023-05-19] MEDS ORDERED: Metoclopramide HCl 10 MG (2 mL) VIAL ONE (07:28)
[2023-05-19] MEDS ORDERED: Heparin 10,000 UNITS/ 10 ML VIAL ONE ×2 (07:41→07:42)
[2023-05-19] MEDS ORDERED: Glycopyrrolate 0.2 MG/ML 5 ML SYRINGE ONE (08:21)
[2023-05-19] MEDS ORDERED: NEOSTIGMINE 3 MG/3 ML SYR 3 MG/3 ML SYRINGE ONE ×2 (08:21)
[2023-05-19] MEDS ORDERED: hydrALAZINE 20 MG/ML VIAL SLOW IVP PRN (08:40)
[2023-05-19] MEDS ORDERED: Nitroglycerin 0.4 MG TAB (25 Tab Bottle) SL SCH (08:40)
[2023-05-19] MEDS ORDERED: Ipratropium/Albuterol 3 ML NEB NEB PRN (08:40)
[2023-05-19] MEDS ORDERED: Ondansetron PF 4 MG/2 ML Vial IVP PRN (08:40)
[2023-05-19] MEDS ORDERED: fentaNYL 50 mcg/mL 1 mL Vial SLOW IVP PRN (08:40)
[2023-05-19] MEDS ORDERED: Nitroglycerin 50 MG/250 ML BOT 250 ML IVPB PRN (08:40)
[2023-05-19] MEDS ORDERED: NICOTINE POLACRILEX GUM PO PRN (08:52)
[2023-05-19] MEDS: Carvedilol 6.25 MG TAB PO SCH (13:45)
[2023-05-19] MEDS: Sodium Chloride 0.9% 1,000 ML IV SCH (13:45)
[2023-05-19] MEDS: Ipratropium/Albuterol 3 ML NEB NEB SCH (14:24)
[2023-05-19 14:38] VITALS: BMI 20.7
[2023-05-19] MEDS: FLU VACC QS2023-24(6MOS UP)/PF 60 MCG/0.5 ML SYRINGE IM ONE (15:09)
[2023-05-19] MEDS: CEFAZOLIN 2 GM in Sodium Chloride 0.9% 100 ML IVPB SCH (15:10)
[2023-05-19] MEDS: traMADol HCl 50 MG TAB PO PRN (20:00)
[2023-05-19] MEDS: Ezetimibe 10 MG TAB PO SCH (20:01)
[2023-05-19] MEDS: Cyanocobalamin (Vitamin B-12) 1,000 MCG TAB PO SCH (20:01)
[2023-05-19] MEDS: Aspirin 81 mg Enteric Coated Tablet PO SCH (20:01)
[2023-05-19] MEDS: Atorvastatin Calcium 40 MG TAB PO SCH (20:01)
[2023-05-19] MEDS: busPIRone HCl 5 MG TAB PO SCH (20:01)
[2023-05-19 20:03] VITALS: BP 105/55
[2023-05-19] MEDS: buPROPion 75 MG TAB PO SCH (20:46)
[2023-05-19] MEDS: Phenylephrine 40 MG in Sodium Chloride 0.9% 250 ML 250 ML IVPB PRN (22:45)
[2023-05-20] MEDS: DOPamine 400 MG/D5W 250 ML 250 ML IVPB PRN (00:09)
[2023-05-20] MEDS: DOPamine 400 MG/D5W 250 ML 250 ML ONE (00:11)
[2023-05-20] MEDS: Acetaminophen 325 MG TAB PO PRN (00:20)
[2023-05-20] MEDS: Ranolazine ER 500 MG TAB PO SCH (08:05)
[2023-05-20] MEDS: Albumin 5% 25 GM (500 mL) BOT IVPB SCH (11:44)
[2023-05-20] MEDS: Pseudoephedrine HCl 30 MG TAB PO SCH (12:03)
[2023-05-20] MEDS: CEFAZOLIN 2 GM in Sodium Chloride 0.9% 100 ML IVPB SCH (13:42)
[2023-05-20 19:50] VITALS: TEMP 98
[2023-05-20] MEDS ORDERED: Valsartan 80 MG TAB PO SCH (21:00)
[2023-05-20] MEDS: Clopidogrel Bisulfate 75 MG TAB PO SCH (21:24)
== END 2023-05-21 08:25 | disposition home or self-care (01) | DRG 36 ==
LOC: SURG A 05-19 06:02 → CCU 05-19 14:13
PROVIDERS: ADMIT Thoracic Surgery (Cardiothoracic Vascular Surgery); ATTEND Thoracic Surgery (Cardiothoracic Vascular Surgery)
PROC: 037L3DZ Dilation of Left Internal Carotid Artery with Intraluminal Device, Percutaneous Approach (ICD-10-PCS; principal; 2023-05-19)
DX: I65.22 Occlusion and stenosis of left carotid artery (principal); Z01.818 Encounter for other preprocedural examination
CPT/HCPCS: 80048; 85027; 93005; 93010; 94640; C1725; C1758; C1769; C1876; C1884; J0171; J0665; J1265; J1644; J2371; J2405; J2704; J2720; J2765; J3010; J3490; J7050; J7620; P9045

== ENCOUNTER 2023-05-18 15:38 | Outpatient (CLI) | payer MEDICARE, OTHER ==
[2023-05-18 17:00] LABS: Hematocrit 41.4 % (38.8-50.0); Hemoglobin 14.3 g/dL (13.5-17.5); Mean Corpuscular HGB CONC 34.5 g/dL (32.0-36.0); Mean Corpuscular Hemoglobin 33.9 pg (27.0-33.0); Mean Corpuscular Volume 98.1 fl (81.2-95.1); Mean Platelet Volume 9.7 fl (7.4-10.4); Platelet Count 297 10x3/uL (150-450); RBC Distribution Width 13.2 % (11.5-14.5); Red Blood Cell (RBC) Count 4.22 10x6/uL (4.32-5.72)
[2023-05-18 17:11] LABS: Anion Gap 13 mmol/L (10-20); BUN (Urea Nitrogen) 20 mg/dL (8.4-25.7); Calc. Creatinine Clearance 0 mL/min (70-130); Calcium 8.9 mg/dL (7.8-10.44); Carbon Dioxide 22 mmol/L (22-29); Chloride 109 mmol/L (98-107); Estimated GFR 69; Glucose 76 mg/dL (70-105); Potassium 4.5 mmol/L (3.5-5.1); Sodium 139 mmol/L (136-145)
== END 2023-05-18 15:39 | disposition home or self-care (01) ==
LOC: LABBT 15:38
PROVIDERS: ATTEND Thoracic Surgery (Cardiothoracic Vascular Surgery)
DX: Z01.818 Encounter for other preprocedural examination (principal); I65.22 Occlusion and stenosis of left carotid artery
CPT/HCPCS: 80048; 85027; 93005; 93010